=== PATIENT | male | born 1955 | race Caucasian/White ===

== ENCOUNTER 2024-08-02 17:13 | Inpatient (IN) ==
[2024-08-02] MEDS: ACETAMINOPHEN 1,000 MG/100 ML VIAL IV STA (18:00)
[2024-08-02] MEDS: ONDANSETRON INJ 2 MG/ML 2 ML VIAL IV STA (18:01)
[2024-08-02 18:17] LABS: Basophils # (auto) 0.02 K/uL (0.00-0.20); Basophils % (auto) 0.1 %; Eosinophils # (auto) 0.02 K/uL (0.00-0.50); Eosinophils % (auto) 0.1 %; Hematocrit (blood only) 44.9 % (42.0-52.0); Hemoglobin 15.1 g/dl (14.0-18.0); Immature Granulocytes # (auto) 0.04 K/uL (0.01-0.20); Immature Granulocytes % (auto) 0.3 %; Lymphocytes # (auto) 1.49 K/uL (1.20-3.40); Lymphocytes % (auto) 9.7 %; Mean Corpuscular Hemoglobin 30.6 pg (25.0-34.0); Mean Corpuscular Hgb Conc 33.6 g/dL (32.0-36.0); Mean Corpuscular Volume 90.9 fL (80.0-100.0); Mean Platelet Volume 10.2 fL (9.4-12.4); Monocytes # (auto) 0.88 K/uL (0.11-0.59); Monocytes % (auto) 5.7 %; Neutrophils # (auto) 12.87 K/uL (1.40-6.50); Neutrophils % (auto) 84.1 %; Platelet Count 270 K/uL (130-400); RDW Coefficient of Variation 13.5 % (11.5-14.5); RDW Standard Deviation 45.3 fL (36.4-46.3); Red Blood Count 4.94 M/uL (4.70-6.10); White Blood Count 15.32 K/ul (4.8-10.8)
[2024-08-02 18:34] LABS: Albumin Globulin Ratio 1.2 (0.9-2); Albumin Level 4.2 gm/dl (3.4-5.0); BUN Creatinine Ratio 38.3 (10-20); Bilirubin,Total 0.7 mg/dl (0.2-1.0); Calcium 10.3 mg/dl (8.6-10.3); Creatinine Clr Calc Pharmacy 80.5 ml/min; Globulin 3.5 gm/dl (2.5-4.0); Total Protein 7.7 gm/dl (6.0-8.3)
[2024-08-02] MEDS: OPTIRAY 320 100ml IV ONE (18:45)
--- NOTE | 2024-08-02 19:02 | CT Scan Report ---
EXAM: CT Abdomen and Pelvis With Intravenous Contrast INDICATION: Abdominal pain, nausea and vomiting TECHNIQUE: Axial computed tomography images of the abdomen and pelvis with intravenous contrast. Sagittal and coronal reformatted images were created and reviewed. This CT exam was performed using one or more of the following dose reduction techniques: automated exposure control, adjustment of the mA and/or kV according to patient size, and/or use of iterative reconstruction technique. CONTRAST: 95ml of Optiray 320 was administered intravenously. COMPARISON: CT abdomen pelvis 02/17/2023 and limited abdominal ultrasound 05/10/2018 FINDINGS: Limitations: None. Lung bases: No abnormality noted. Pleural space: No visualized pleural effusion or pneumothorax. Heart: No abnormality noted. Mediastinum: No abnormality noted. ABDOMEN: Liver: No abnormality noted. Gallbladder and bile ducts: No calcified stones or surrounding fluid. Pancreas: Homogeneous enhancement. No mass, inflammation or ductal dilation. Spleen: No significant abnormality noted. Adrenals: No significant abnormality noted. Kidneys and ureters: Lateral cortex midpole right kidney hypodense mass noted measuring 1.9 x 1.3 x 2.0 cm. The left kidney appears normal. There is no urinary gas, stone or perinephric fluid. Stomach and bowel: Suboptimally assessed partially collapsed stomach. No gross abnormality. Scattered moderate formed stool noted in the colon. No small bowel obstruction. No inflammatory process or thickening. PELVIS: Appendix: No findings to suggest acute appendicitis. Bladder: No filling defects to suggest mass or large stone. No inflammation. Reproductive: No abnormalities noted. ABDOMEN and PELVIS: Intraperitoneal space: No free air. No significant fluid collection. Bones/joints: No acute changes. Soft tissues: No significant abnormality noted. Vasculature: Atherosclerotic calcification of the aorta and branches. No aneurysm. Lymph nodes: No pathologically enlarged lymph nodes. IMPRESSION: 1. Incompletely assessed partially collapsed stomach. There is no visible mass, intestinal obstruction, thickening or inflammatory process. 2. Hypodense mass right renal midpole measures approximately 2 cm. No lesion was identified on the prior ultrasound which included the right kidney. Diagnostic considerations include complex cyst, abscess and neoplasm. Dedicated renal ultrasound recommended to further assess. ACT 112: Negative or not required by law. Electronically signed by Ivett Zhong 08-02-2024 7:01 PM
[2024-08-02 19:12] LABS: Adenovirus PCR Not Detected (NotDetected); Bordetella parapertussis PCR Not Detected (NotDetected); Bordetella pertussis PCR Not Detected (NotDetected); Chlamydia pneumoniae PCR Not Detected (NotDetected); Coronavirus 229E PCR Not Detected (NotDetected); Coronavirus CoV-2 (COVID19)PCR Not Detected (NotDetected); Coronavirus HKU1 PCR Not Detected (NotDetected); Coronavirus NL63 PCR Not Detected (NotDetected); Coronavirus OC43PCR Not Detected (NotDetected); Human Metapneumovirus PCR Not Detected (NotDetected); Influenza A PCR Not Detected (NotDetected); Influenza B PCR Not Detected (NotDetected); Mycoplasma pneumoniae PCR Not Detected (NotDetected); Parainfluenza Virus 1 PCR Not Detected (NotDetected); Parainfluenza Virus 2 PCR Not Detected (NotDetected); Parainfluenza Virus 3 PCR Not Detected (NotDetected); Parainfluenza Virus 4 PCR Not Detected (NotDetected); Respiratory Syncytial VirusPCR Not Detected (NotDetected); Rhinovirus/Enterovirus PCR Not Detected (NotDetected)
[2024-08-02] MEDS: SODIUM CHLORIDE 0.9% 1,000 ML IV ONE ×2 (19:14→22:39)
--- NOTE | 2024-08-02 19:55 | XRay Report ---
Exam(s): XR CXR 1 VIEW EXAM: XR Chest, 1 View CLINICAL HISTORY: Reason for exam: cough. TECHNIQUE: Frontal view of the chest. COMPARISON: 02/17/23 FINDINGS: Lungs: Unremarkable. No consolidation. Pleural space: Unremarkable. No pleural effusion or pneumothorax. Heart: Unremarkable. No cardiomegaly or pulmonary vascular congestion. Bones/joints: No acute fracture. No dislocation. IMPRESSION: No evidence of acute cardiopulmonary disease. Electronically signed by: Viry Baumann M.D. 08/02/24 19:54 PM
--- NOTE | 2024-08-02 20:19 | Emergency Department Note ---
ED Provider Note History of Present Illness Chief Complaint: Illness Stated Complaint: SICK, RECOVERING FROM FLU Time Seen by Provider: 08/02/24 17:34 Source: patient Mode of arrival: ambulatory Limitations: no limitations Patient is a 69-year-old male who presents to the emergency department today with complaints of nausea, vomiting, and generalized ill feeling since Saturday. Patient states that he had his flu shot on Saturday and his symptoms began 3 hours after, patient is unsure if that is related. Patient states that he has been unable to eat or drink much since Saturday because of his nausea and decreased appetite. Patient notes generalized abdominal pain. Patient denies any chest pain or shortness of breath. Allergies Allergy/AdvReac Type Severity Reaction Status Date / Time No Known Allergies Allergy Verified 07/16/24 10:38 Past Med/Surg History Problem List (Updated 08/02/24 @ 21:41 by EDVIN Fernandez) Mass of right kidney (Acute) Diabetes with skin complication Cigarette smoker History of diabetic ketoacidosis History of necrotising fasciitis Diabetes mellitus with complication Anemia GERD (gastroesophageal reflux disease) Medical History Hyperglycemia Pancreatitis 05/17/18 treated at [facility] GERD (gastroesophageal reflux disease) Surgical History History of tonsillectomy Family History Sister Breast cancer Grandfather Myocardial infarction Father Alzheimer disease Denies family history of Ovarian cancer Prostate cancer Colorectal cancer Social History Smoking Status: Current every day smoker Tobacco Type: Cigarettes Age Started Using Tobacco: 19; packs per day: 1; Cigarettes Per Day: 20; Second Hand Exposure: No; Do You Dip or Chew Tobacco: No; Hx Alcohol Use: Yes Alcohol type: beer Alcohol Intake Frequency: 4 or More x per/Week Alcohol Intake Frequency Comment: Pt stated, "I will drink about 2 beers a day." Hx Substance Use: No Preferred Language: Bulgarian Communication Ability: Effective Bar Pilot Required: No Beliefs That Will Affect Care: None Current Living Situation: Alone current occupational status: retired Feels Safe at Home: Yes Diet: diabetic during the past year weight has: decreased > 10 lbs Dental Care, Regularly: No Physical Activity Frequency: Daily Seatbelt Use: always Assistive Devices: Denture - Upper, Denture - Lower and Glasses Physical Exam Vital Signs Vital Signs - 24 hr 08/02/24 17:19 08/02/24 17:50 08/02/24 18:10 Temperature 36.6 C Temperature Source Temporal Artery Scan Pulse Rate 108 H 90 Pulse Rate [Finger] 78 Pulse Rhythm [Finger] Pulse Strength [Finger] Normal Respiratory Rate 18 18 Respiratory Effort / Characteristics Non-Labored Non-Labored Spontaneous Respiratory Depth Normal Normal Respiratory Pattern Regular Regular Blood Pressure 138/88 Blood Pressure [Left Arm] 167/82 H Blood Pressure Mean 104 Blood Pressure Mean [Left Arm] 110 Blood Pressure Position [Left Arm] Lying Pulse Oximetry 97 95 Oxygen Delivery Method Room Air Room Air Sepsis Recent Fever Within 48 Hours No Sepsis New/Unexplained Change in Mental Status N/A Sepsis Action Taken by Nursing No Action Required 08/02/24 18:10 08/02/24 19:16 08/02/24 21:00 Temperature Temperature Source Pulse Rate 75 Pulse Rate [Finger] 78 84 Pulse Rhythm [Finger] Regular Pulse Strength [Finger] Normal Respiratory Rate 18 18 18 Respiratory Effort / Characteristics Non-Labored Spontaneous Respiratory Depth Normal Respiratory Pattern Blood Pressure Blood Pressure [Left Arm] 162/83 H 158/94 H Blood Pressure Mean Blood Pressure Mean [Left Arm] 109 115 Blood Pressure Position [Left Arm] Pulse Oximetry 95 98 96 Oxygen Delivery Method Room Air Room Air Sepsis Recent Fever Within 48 Hours Sepsis New/Unexplained Change in Mental Status Sepsis Action Taken by Nursing VITAL SIGNS - Vital signs and nursing notes were reviewed. GENERAL -69-year-old male appearing his stated age who is in no acute distress. Communicates well with provider and answers questions appropriately. HEAD - NC/AT. EYES - PERRL with EOMI bilaterally. Conjunctiva pink and moist with no injection noted. EARS - No deformities of external structures noted on gross examination bilaterally. NOSE - Midline and without cyanosis. No epistaxis or purulent drainage noted. LUNGS - Chest wall symmetric without accessory muscle use, intercostals retractions, or central cyanosis. Breath sounds clear throughout all marshall. No wheezes, rales, or rhonchi appreciated. CARDIAC - RRR with S1/S2. No murmur, rubs, or gallops appreciated. ABDOMEN - Abdominal contour without pulsations or visible masses. BS normoactive all four quadrants. Generalized abdominal tenderness, no increased tenderness to palpation. No palpable masses, hepatosplenomegaly, or ascites noted. NEUROLOGIC - Sensory intact to light touch throughout. PSYCH - A&Ox3 and cooperates fully with examiner. Pt is very pleasant and interacts well with examiner. Course Administered Medications Discontinued Medications Acetaminophen (Ofirmev) 1,000 mg in 100 mls @ 400 mls/hr IV NOW STA Stop: 08/02/24 17:54 Last Infusion: 08/02/24 18:48 Dose: Infused Documented By: Admin: 08/02/24 18:00 Dose: 400 mls/hr Documented By: LYNDON Sodium Chloride (Nss) 1,000 mls @ 999 mls/hr IV .Q1H1M ONE Stop: 08/02/24 20:08 Last Infusion: 08/02/24 20:15 Dose: Infused Documented By: Admin: 08/02/24 19:14 Dose: 999 mls/hr Documented By: LYNDON Ceftriaxone Sodium (Rocephin) 2,000 mg in 50 mls @ 100 mls/hr IV NOW STA Stop: 08/02/24 20:34 Last Infusion: 08/02/24 20:55 Dose: Infused Documented By: Admin: 08/02/24 20:23 Dose: 100 mls/hr Documented By: LYNDON Ioversol (Optiray 320 100ml) 95 ml IV ONCE ONE Stop: 08/02/24 18:46 Last Admin: 08/02/24 18:45 Dose: 95 ml Documented By: RED Ondansetron HCl (Ondansetron Inj 2 Mg/Ml 2 Ml Vial) 4 mg IV NOW STA Stop: 08/02/24 17:41 Last Admin: 08/02/24 18:01 Dose: 4 mg Documented By: LYNDON Medical Decision Making Differential Diagnosis Differential diagnoses includes gastritis, gastroenteritis, IBS, small bowel obstruction, pancreatitis, peritonitis, constipation, abdominal abcess, among others. Medical Records Attestation: I reviewed the patient's medical records. Home Medications was personally reviewed by me Laboratory Data Attestation: I reviewed the patient's lab results. 08/02/24 17:50 08/02/24 17:50 Lab Results 08/02/24 08/02/24 08/02/24 Range/Units 17:50 19:50 20:15 WBC 15.32 H (4.8-10.8) K/ul RBC 4.94 (4.70-6.10) M/uL Hgb 15.1 (14.0-18.0) g/dl Hct 44.9 (42.0-52.0) % MCV 90.9 (80.0-100.0) fL MCH 30.6 (25.0-34.0) pg MCHC 33.6 (32.0-36.0) g/dL RDW Std Deviation 45.3 (36.4-46.3) fL RDW Coeff of Poli 13.5 (11.5-14.5) % Plt Count 270 (130-400) K/uL MPV 10.2 (9.4-12.4) fL Immature Gran % (Auto) 0.3 % Neut % (Auto) 84.1 % Lymph % (Auto) 9.7 % [place] % (Auto) 5.7 % Eos % (Auto) 0.1 % Baso % (Auto) 0.1 % Neut # (Auto) 12.87 H (1.40-6.50) K/uL Lymph # (Auto) 1.49 (1.20-3.40) K/uL [place] # (Auto) 0.88 H (0.11-0.59) K/uL Eos # (Auto) 0.02 (0.00-0.50) K/uL Baso # (Auto) 0.02 (0.00-0.20) K/uL Immature Gran # (Auto) 0.04 (0.01-0.20) K/uL Sodium 145 (136-145) mmol/L Potassium 4.0 (3.5-5.1) mmol/L Chloride 104 (98-107) mmol/L Carbon Dioxide 32 (21-32) mmol/L Anion Gap 9 (3-11) BUN 31 H (6-23) mg/dl Creatinine 0.81 (0.6-1.4) mg/dl Est Cr Clr Drug Dosing 80.5 ml/min eGFR 95.44 BUN/Creatinine Ratio 38.3 H (10-20) Glucose 173 H (70-99(Fasting)) mg/dl Lactate 1.0 (0.4-2.0) mmol/L Calcium 10.3 (8.6-10.3) mg/dl Total Bilirubin 0.7 (0.2-1.0) mg/dl AST 18 (13-39) U/L ALT 19 (7-52) U/L Alkaline Phosphatase 91 (34-104) U/L Total Protein 7.7 (6.0-8.3) gm/dl Albumin 4.2 (3.4-5.0) gm/dl Globulin 3.5 (2.5-4.0) gm/dl Albumin/Globulin Ratio 1.2 (0.9-2) Lipase 35 (11-82) U/L Procalcitonin 0.38 (0-0.5) ng/ml Urine Color Yellow Urine Appearance Clear (Clear) Urine pH 5.5 (4.5-7.5) Ur Specific [place] > 1.045 H (1.000-1.030) Urine Protein Trace H (Negative) Urine Glucose (UA) Negative (Negative) Urine Ketones Negative (Negative) Urine Blood Negative (Negative) Urine Nitrite Negative (Negative) Urine Bilirubin Negative (Negative) Urine Urobilinogen Negative (Negative) Ur Leukocyte Esterase Negative (Negative) Urine WBC (Auto) 0-5 (0-5) /hpf Urine RBC (Auto) 0-2 (0-2) /hpf U Hyaline Cast (Auto) 0-2 (0-2) /lpf U Epithel Cells (Auto) 0-2 (0-2) /hpf Urine Bacteria (Auto) None Seen (None Seen) Adenovirus (PCR) Not Detected (NotDetected) B. pertussis DNA (PCR) Not Detected (NotDetected) B.parapertussis DNA PCR Not Detected (NotDetected) C. pneumoniae DNA (PCR) Not Detected (NotDetected) Coronavirus OC43 (PCR) Not Detected (NotDetected) Coronavirus HKU1 (PCR) Not Detected (NotDetected) Coronavirus 229E (PCR) Not Detected (NotDetected) SARS-CoV-2 (PCR) Not Detected (NotDetected) Coronavirus NL63 (PCR) Not Detected (NotDetected) Human Metapneumovir PCR Not Detected (NotDetected) Influenza Type A (PCR) Not Detected (NotDetected) Influenza Type B (PCR) Not Detected (NotDetected) M. pneumoniae (PCR) Not Detected (NotDetected) Parainfluenza 1 (PCR) Not Detected (NotDetected) Parainfluenza 2 (PCR) Not Detected (NotDetected) Parainfluenza 3 (PCR) Not Detected (NotDetected) Parainfluenza 4 (PCR) Not Detected (NotDetected) RSV (PCR) Not Detected (NotDetected) Entero/Rhino (PCR) Not Detected (NotDetected) Imaging Data Radiologist's Impression: Abdomen/Pelvis CT 08/02/24 17:41 EXAM: CT Abdomen and Pelvis With Intravenous Contrast INDICATION: Abdominal pain, nausea and vomiting TECHNIQUE: Axial computed tomography images of the abdomen and pelvis with intravenous contrast. Sagittal and coronal reformatted images were created and reviewed. This CT exam was performed using one or more of the following dose reduction techniques: automated exposure control, adjustment of the mA and/or kV according to patient size, and/or use of iterative reconstruction technique. CONTRAST: 95ml of Optiray 320 was administered intravenously. COMPARISON: CT abdomen pelvis 02/17/2023 and limited abdominal ultrasound 05/10/2018 FINDINGS: Limitations: None. Lung bases: No abnormality noted. Pleural space: No visualized pleural effusion or pneumothorax. Heart: No abnormality noted. Mediastinum: No abnormality noted. ABDOMEN: Liver: No abnormality noted. Gallbladder and bile ducts: No calcified stones or surrounding fluid. Pancreas: Homogeneous enhancement. No mass, inflammation or ductal dilation. Spleen: No significant abnormality noted. Adrenals: No significant abnormality noted. Kidneys and ureters: Lateral cortex midpole right kidney hypodense mass noted measuring 1.9 x 1.3 x 2.0 cm. The left kidney appears normal. There is no urinary gas, stone or perinephric fluid. Stomach and bowel: Suboptimally assessed partially collapsed stomach. No gross abnormality. Scattered moderate formed stool noted in the colon. No small bowel obstruction. No inflammatory process or thickening. PELVIS: Appendix: No findings to suggest acute appendicitis. Bladder: No filling defects to suggest mass or large stone. No inflammation. Reproductive: No abnormalities noted. ABDOMEN and PELVIS: Intraperitoneal space: No free air. No significant fluid collection. Bones/joints: No acute changes. Soft tissues: No significant abnormality noted. Vasculature: Atherosclerotic calcification of the aorta and branches. No aneurysm. Lymph nodes: No pathologically enlarged lymph nodes. IMPRESSION: 1. Incompletely assessed partially collapsed stomach. There is no visible mass, intestinal obstruction, thickening or inflammatory process. 2. Hypodense mass right renal midpole measures approximately 2 cm. No lesion was identified on the prior ultrasound which included the right kidney. Diagnostic considerations include complex cyst, abscess and neoplasm. Dedicated renal ultrasound recommended to further assess. ACT 112: Negative or not required by law. Electronically signed by Ivett Zhong 08-02-2024 7:01 PM Chest X-Ray 08/02/24 18:23 Exam(s): XR CXR 1 VIEW EXAM: XR Chest, 1 View CLINICAL HISTORY: Reason for exam: cough. TECHNIQUE: Frontal view of the chest. COMPARISON: 02/17/23 FINDINGS: Lungs: Unremarkable. No consolidation. Pleural space: Unremarkable. No pleural effusion or pneumothorax. Heart: Unremarkable. No cardiomegaly or pulmonary vascular congestion. Bones/joints: No acute fracture. No dislocation. IMPRESSION: No evidence of acute cardiopulmonary disease. Electronically signed by: Viry Baumann M.D. 08/02/24 19:54 PM Renal Ultrasound 08/02/24 20:21 Exam(s): US RENAL EXAM: US Retroperitoneal Limited, Renal CLINICAL HISTORY: Reason for exam: renal mass. TECHNIQUE: Real-time limited ultrasound of the retroperitoneum with image documentation. COMPARISON: CT abdomen and pelvis of the same date FINDINGS: Right kidney: Right kidney measures 11.2 cm. No hydronephrosis. No stone. Complex midpole lesion measuring 2.6 cm. Left kidney: Left kidney measures 11.2 cm. No hydronephrosis, mass, cyst, or stone. Bladder: Urinary bladder appears normal. Left jet visualized. Right jet not visualized during the course of imaging. IMPRESSION: Complex right kidney midpole mass measuring 2.6 cm. Further characterization with renal mass protocol MRI or CT recommended. Electronically signed by: Viry Baumann M.D. 08/02/24 21:[address] [facility] Narrative Patient is a 69-year-old male who presents to the emergency department with complaints of generalized abdominal pain, nausea, and vomiting since Saturday. Patient states that he had his flu vaccine on Saturday and 3 hours after started having nausea and vomiting. Patient states that he is unsure if that is related. Patient notes that he is not been able to eat or drink much over the last 3 days because of his symptoms worsening. Patient denies any chest pain or shortness of breath. Patient was evaluated by myself and findings were noted in the physical exam above. Patient was ordered IV placement, lab work, respiratory viral panel, urinalysis, and chest x-ray and CT of the abdomen and pelvis. Patient's lab work resulted and showed the patient to have an elevated white blood cell count of 15.32. Patient also had an elevated BUN at 31. Otherwise the patient's lab work was relatively unremarkable. Patient's upper respiratory viral panel was negative for any viral process. Patient's x-ray of the chest was completed and interpreted by radiology to show no evidence of acute cardiopulmonary disease. Patient had a CT of the abdomen and pelvis completed which was interpreted by radiology to show hypodense mass on the right renal midpole that measures approximately 2 cm. Radiology interpreted it to be a cyst versus abscess versus neoplasm and suggested renal ultrasound for further follow-up. Patient initially was having some difficulty voiding and nursing staff did a bladder scan at bedside which bladder scan for about 200 mL. Patient was then able to void approximately 100 mL and that was sent for urinalysis. Patient's urinalysis returned and was unremarkable, noting only trace protein. Because of the patient's elevated white blood cell count and relatively unremarkable findings outside of the renal mass, I contacted urology as well as ordered the renal ultrasound and further lab work to include a lactic, procalcitonin, and blood cultures. I spoke with Dr. Alcala of urology who also looked at the patient's lab work and CT and agreed that the mass did not look like a typical renal mass and suggested the renal ultrasound as well. Dr. Alcala stated that if the patient's ultrasound showed a definitive abscess on the kidney that he should be transferred to a tertiary care center but stated that if the patient's ultrasound was not definitive on the cause that he could be kept here under the medical services and consult urology and continue to monitor the patient to see if IV antibiotics improve the patient's status and the patient could be reimaged in a day or 2. Upon reevaluation the patient states that he is feeling better with the IV Tylenol. Patient was ordered a dose of IV Rocephin. I discussed with the patient the possibility of admission to the hospital and the patient verbalized understanding and stated that he would do what ever was necessary. The patient's renal ultrasound resulted and showed a complex mass of the kidney and suggested further imaging. I reached back out to Dr. Alcala and made him aware that it did not show a definitive abscess and made him aware that I was reaching out to [facility] to admit the patient here at [facility]. I spoke with case management about admitting the patient here and the patient was under the [facility] service. I reached out to [facility] service and Dr. Dye about this patient. Please refer to [facility]'s documentation for further evaluation and management of this patient. Impression Mass of right kidney Discharge Plan Visit Data Chief Complaint: Illness Stated Complaint: SICK, RECOVERING FROM FLU ED Provider: Sam Morrissey ED Midlevel Provider: Ina Giron Discharge Problem: Mass of right kidney Patient Disposition: Admitted As Inpatient Forms Stand Alone Forms: My [facility] Referrals Referrals: Angel Fang, [Primary Care Provider] -
[2024-08-02] MEDS: cefTRIAXone SODIUM 2,000 MG/50 ML BAG IV STA (20:23)
[2024-08-02 20:27] LABS: Appearance Urine Clear (Clear); Bacteria Urine Automated None Seen (None Seen); Bilirubin Urine Negative (Negative); Blood Urine Negative (Negative); Cast Urine Automated 0-2 /lpf (0-2); Color Urine Yellow; Epithelial Cell Urine Auto 0-2 /hpf (0-2); Glucose Urine UA Negative (Negative); Ketones Urine Negative (Negative); Leukocyte Esterase Urine Negative (Negative); Nitrite Urine Negative (Negative); Protein Urine Trace (Negative); RBC Urine Automated 0-2 /hpf (0-2); Specific Gravity Urine > 1.045 (1.000-1.030); Urobilinogen Urine Negative (Negative); WBC Urine Automated 0-5 /hpf (0-5); pH Urine 5.5 (4.5-7.5)
--- NOTE | 2024-08-02 21:26 | Ultrasound Report ---
Exam(s): US RENAL EXAM: US Retroperitoneal Limited, Renal CLINICAL HISTORY: Reason for exam: renal mass. TECHNIQUE: Real-time limited ultrasound of the retroperitoneum with image documentation. COMPARISON: CT abdomen and pelvis of the same date FINDINGS: Right kidney: Right kidney measures 11.2 cm. No hydronephrosis. No stone. Complex midpole lesion measuring 2.6 cm. Left kidney: Left kidney measures 11.2 cm. No hydronephrosis, mass, cyst, or stone. Bladder: Urinary bladder appears normal. Left jet visualized. Right jet not visualized during the course of imaging. IMPRESSION: Complex right kidney midpole mass measuring 2.6 cm. Further characterization with renal mass protocol MRI or CT recommended. Electronically signed by: Viry Baumann M.D. 08/02/24 21:25 PM
--- NOTE | 2024-08-02 22:26 | History & Physical Report ---
Date of Service August 02, 2024 Assessment & Plan (1) Influenza vaccine side effect: (2) Nausea and vomiting: (3) Mass of right kidney: (4) Dehydration: (5) Cigarette smoker: (6) Diabetes mellitus with complication: (7) GERD (gastroesophageal reflux disease): Plan Nausea, vomiting, dehydration- Likely adverse reaction to influenza vaccine From the ED received the following: NSS 1 L fluid bolus, Tylenol 1 g IV, and Zofran 4 mg IV Give additional 1 L normal saline bolus now Full liquid diet, and advance as tolerated Dose of 40 mg IV x 1 now Maintenance fluids NSS + KCl 20 mill equivalents at 80 mL/h x 1 L Acetaminophen 650 mg by mouth every 6 hours as needed for mild pain or fever 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 on renal ultrasound Initially noted on CT abdomen pelvis is a 2 cm right renal midpole lesion Urinalysis is negative for infection He was given ceftriaxone 2 g IV from the ED Send urine cytology with reflex FISH Diabetes mellitus- Glucose 173 on admission Hold metformin Placed on Accu-Cheks with NovoLog SSI Tobacco use disorder Feels he will not need a nicotine patch, but will ask if he changes his mind Hyperlipidemia- Hold rosuvastatin for now History of Present Illness Chief Complaint: The patient presents to the emergency department with complaint of nausea, vomiting and feelings of dehydration that initially began after receiving a flu shot on Saturday morning, 2 mornings ago, and began to feel like he had the flu a few hours later. Primary Care Provider: Angel Fang DO The patient is a 69-year-old male with a past medical history including chronic tobacco use, history of DKA, history of necrotizing fasciitis, diabetes mellitus, anemia, GERD, and history of pancreatitis. He presents to the emergency department after developing flulike symptoms shortly after receiving a flu shot 2 mornings ago. In the emergency department this evening, he reports feeling somewhat improved after having received normal saline 1 L fluid bolus, Tylenol 1 g IV, and Zofran 4 mg IV. Allergies Allergy/AdvReac Type Severity Reaction Status Date / Time No Known Allergies Allergy Verified 07/16/24 10:38 Past Med/Surg History Problem List (Updated 08/03/24 @ 01:26 by Sim Dye MD) Influenza vaccine side effect Nausea and vomiting Dehydration Mass of right kidney (Acute) Diabetes with skin complication Cigarette smoker History of diabetic ketoacidosis History of necrotising fasciitis Diabetes mellitus with complication Anemia GERD (gastroesophageal reflux disease) Medical History Hyperglycemia Pancreatitis 05/17/18 treated at [facility] GERD (gastroesophageal reflux disease) Surgical History History of tonsillectomy Family History Sister Breast cancer Grandfather Myocardial infarction Father Alzheimer disease Denies family history of Ovarian cancer Prostate cancer Colorectal cancer Social History Smoking Status: Heavy tobacco smoker Tobacco Type: Cigarettes Age Started Using Tobacco: 19; packs per day: 1; Cigarettes Per Day: 20; Second Hand Exposure: No; Do You Dip or Chew Tobacco: No; Hx Alcohol Use: Yes Alcohol type: wine Alcohol Intake Frequency: 4 or More x per/Week Alcohol Intake Frequency Comment: Pt stated, "I will drink about 2 beers a day." Hx Substance Use: Yes Preferred Language: Mongolian Communication Ability: Effective Patient Financial Rep Required: No Beliefs That Will Affect Care: None Current Living Situation: Alone current occupational status: retired Feels Safe at Home: Yes Diet: diabetic during the past year weight has: decreased > 10 lbs Dental Care, Regularly: No Physical Activity Frequency: Daily Seatbelt Use: always Assistive Devices: None Review of Systems Review of Systems: The patient denies chest pain, palpitations, shortness of breath, dyspnea on exertion, cough, lower extremity swelling, sore throat, diarrhea , constipation, abdominal pain, pelvic pain, blood in urine or stool, dysuria, urinary frequency or urgency, memory loss, loss of consciousness, rash, abnormal bruising or bleeding, focal or generalized weakness, numbness or tingling in arms or legs, back or neck pain, or night sweats. The review of systems is otherwise negative other than for that already noted above, and at least 10 systems have been reviewed. Physical Exam Physical Exam: The patient is awake, alert and oriented 3, well developed and well nourished, normocephalic and atraumatic, lying in bed and in no acute distress. HEENT--PERRL, EOMI, mucous membranes and oropharynx mildly dry. Neck--supple. No JVD. No bruits. Thyroid normal, trachea midline, no adenopathy. Heart--normal S1 and S2. No murmurs, rubs or gallops. Lungs--clear bilaterally, no respiratory distress, no accessory muscle use. Abdomen--normal bowel sounds and soft. Nontender. Nondistended, no hernias or masses, no organomegaly. Extremities--no cyanosis or clubbing. No edema. There are good distal pulses b/l. Dermatologic--normal skin turgor, normal color, no abnormal lymph nodes, no rash. Neurologic--cranial nerves II through XII grossly intact. Rheumatologic--normal range of motion. Psychiatric--normal affect. Results & Data Results & Data Vital Signs (Past 12 Hours) Vital Signs Temp Pulse Pulse Resp BP BP Pulse Ox 08/02/24 21:00 84 18 158/94 H 96 08/02/24 19:16 78 18 162/83 H 98 08/02/24 18:10 75 18 95 08/02/24 18:10 78 18 167/82 H 95 08/02/24 17:50 90 08/02/24 17:19 36.6 C 108 H 18 138/88 97 O2 Del Method 08/02/24 21:00 08/02/24 19:16 Room Air 08/02/24 18:10 Room Air 08/02/24 18:10 Room Air 08/02/24 17:50 08/02/24 17:19 Room Air Laboratory Results Laboratory Results WBC 15.32 K/ul (4.8-10.8) H 08/02/24 17:50 RBC 4.94 M/uL (4.70-6.10) 08/02/24 17:50 Hgb 15.1 g/dl (14.0-18.0) 08/02/24 17:50 Hct 44.9 % (42.0-52.0) 08/02/24 17:50 MCV 90.9 fL (80.0-100.0) 08/02/24 17:50 MCH 30.6 pg (25.0-34.0) 08/02/24 17:50 MCHC 33.6 g/dL (32.0-36.0) 08/02/24 17:50 RDW Std Deviation 45.3 fL (36.4-46.3) 08/02/24 17:50 RDW Coeff of Poli 13.5 % (11.5-14.5) 08/02/24 17:50 Plt Count 270 K/uL (130-400) 08/02/24 17:50 MPV 10.2 fL (9.4-12.4) 08/02/24 17:50 Immature Gran % (Auto) 0.3 % 08/02/24 17:50 Neut % (Auto) 84.1 % 08/02/24 17:50 Lymph % (Auto) 9.7 % 08/02/24 17:50 [place] % (Auto) 5.7 % 08/02/24 17:50 Eos % (Auto) 0.1 % 08/02/24 17:50 Baso % (Auto) 0.1 % 08/02/24 17:50 Neut # (Auto) 12.87 K/uL (1.40-6.50) H 08/02/24 17:50 Lymph # (Auto) 1.49 K/uL (1.20-3.40) 08/02/24 17:50 [place] # (Auto) 0.88 K/uL (0.11-0.59) H 08/02/24 17:50 Eos # (Auto) 0.02 K/uL (0.00-0.50) 08/02/24 17:50 Baso # (Auto) 0.02 K/uL (0.00-0.20) 08/02/24 17:50 Immature Gran # (Auto) 0.04 K/uL (0.01-0.20) 08/02/24 17:50 Sodium 145 mmol/L (136-145) 08/02/24 17:50 Potassium 4.0 mmol/L (3.5-5.1) 08/02/24 17:50 Chloride 104 mmol/L (98-107) 08/02/24 17:50 Carbon Dioxide 32 mmol/L (21-32) 08/02/24 17:50 Anion Gap 9 (3-11) 08/02/24 17:50 BUN 31 mg/dl (6-23) H 08/02/24 17:50 Creatinine 0.81 mg/dl (0.6-1.4) 08/02/24 17:50 Est Cr Clr Drug Dosing 80.5 ml/min 08/02/24 17:50 eGFR 95.44 08/02/24 17:50 BUN/Creatinine Ratio 38.3 (10-20) H 08/02/24 17:50 Glucose 173 mg/dl (70-99(Fasting)) H 08/02/24 17:50 POC Glucose 122 mg/dl (70-99) H 08/02/24 23:58 Lactate 1.0 mmol/L (0.4-2.0) 08/02/24 20:15 Calcium 10.3 mg/dl (8.6-10.3) 08/02/24 17:50 Total Bilirubin 0.7 mg/dl (0.2-1.0) 08/02/24 17:50 AST 18 U/L (13-39) 08/02/24 17:50 ALT 19 U/L (7-52) 08/02/24 17:50 Alkaline Phosphatase 91 U/L (34-104) 08/02/24 17:50 Total Protein 7.7 gm/dl (6.0-8.3) 08/02/24 17:50 Albumin 4.2 gm/dl (3.4-5.0) 08/02/24 17:50 Globulin 3.5 gm/dl (2.5-4.0) 08/02/24 17:50 Albumin/Globulin Ratio 1.2 (0.9-2) 08/02/24 17:50 Lipase 35 U/L (11-82) 08/02/24 17:50 Procalcitonin 0.38 ng/ml (0-0.5) 08/02/24 20:15 Urine Color Yellow 08/02/24 19:50 Urine Appearance Clear (Clear) 08/02/24 19:50 Urine pH 5.5 (4.5-7.5) 08/02/24 19:50 Ur Specific [place] > 1.045 (1.000-1.030) H 08/02/24 19:50 Urine Protein Trace (Negative) H 08/02/24 19:50 Urine Glucose (UA) Negative (Negative) 08/02/24 19:50 Urine Ketones Negative (Negative) 08/02/24 19:50 Urine Blood Negative (Negative) 08/02/24 19:50 Urine Nitrite Negative (Negative) 08/02/24 19:50 Urine Bilirubin Negative (Negative) 08/02/24 19:50 Urine Urobilinogen Negative (Negative) 08/02/24 19:50 Ur Leukocyte Esterase Negative (Negative) 08/02/24 19:50 Urine WBC (Auto) 0-5 /hpf (0-5) 08/02/24 19:50 Urine RBC (Auto) 0-2 /hpf (0-2) 08/02/24 19:50 U Hyaline Cast (Auto) 0-2 /lpf (0-2) 08/02/24 19:50 U Epithel Cells (Auto) 0-2 /hpf (0-2) 08/02/24 19:50 Urine Bacteria (Auto) None Seen (None Seen) 08/02/24 19:50 Adenovirus (PCR) Not Detected (NotDetected) 08/02/24 17:50 B. pertussis DNA (PCR) Not Detected (NotDetected) 08/02/24 17:50 B.parapertussis DNA PCR Not Detected (NotDetected) 08/02/24 17:50 C. pneumoniae DNA (PCR) Not Detected (NotDetected) 08/02/24 17:50 Coronavirus OC43 (PCR) Not Detected (NotDetected) 08/02/24 17:50 Coronavirus HKU1 (PCR) Not Detected (NotDetected) 08/02/24 17:50 Coronavirus 229E (PCR) Not Detected (NotDetected) 08/02/24 17:50 SARS-CoV-2 (PCR) Not Detected (NotDetected) 08/02/24 17:50 Coronavirus NL63 (PCR) Not Detected (NotDetected) 08/02/24 17:50 Human Metapneumovir PCR Not Detected (NotDetected) 08/02/24 17:50 Influenza Type A (PCR) Not Detected (NotDetected) 08/02/24 17:50 Influenza Type B (PCR) Not Detected (NotDetected) 08/02/24 17:50 M. pneumoniae (PCR) Not Detected (NotDetected) 08/02/24 17:50 Parainfluenza 1 (PCR) Not Detected (NotDetected) 08/02/24 17:50 Parainfluenza 2 (PCR) Not Detected (NotDetected) 08/02/24 17:50 Parainfluenza 3 (PCR) Not Detected (NotDetected) 08/02/24 17:50 Parainfluenza 4 (PCR) Not Detected (NotDetected) 08/02/24 17:50 RSV (PCR) Not Detected (NotDetected) 08/02/24 17:50 Entero/Rhino (PCR) Not Detected (NotDetected) 08/02/24 17:50 Impressions Abdomen/Pelvis CT 08/02/24 17:41 EXAM: CT Abdomen and Pelvis With Intravenous Contrast INDICATION: Abdominal pain, nausea and vomiting TECHNIQUE: Axial computed tomography images of the abdomen and pelvis with intravenous contrast. Sagittal and coronal reformatted images were created and reviewed. This CT exam was performed using one or more of the following dose reduction techniques: automated exposure control, adjustment of the mA and/or kV according to patient size, and/or use of iterative reconstruction technique. CONTRAST: 95ml of Optiray 320 was administered intravenously. COMPARISON: CT abdomen pelvis 02/17/2023 and limited abdominal ultrasound 05/10/2018 FINDINGS: Limitations: None. Lung bases: No abnormality noted. Pleural space: No visualized pleural effusion or pneumothorax. Heart: No abnormality noted. Mediastinum: No abnormality noted. ABDOMEN: Liver: No abnormality noted. Gallbladder and bile ducts: No calcified stones or surrounding fluid. Pancreas: Homogeneous enhancement. No mass, inflammation or ductal dilation. Spleen: No significant abnormality noted. Adrenals: No significant abnormality noted. Kidneys and ureters: Lateral cortex midpole right kidney hypodense mass noted measuring 1.9 x 1.3 x 2.0 cm. The left kidney appears normal. There is no urinary gas, stone or perinephric fluid. Stomach and bowel: Suboptimally assessed partially collapsed stomach. No gross abnormality. Scattered moderate formed stool noted in the colon. No small bowel obstruction. No inflammatory process or thickening. PELVIS: Appendix: No findings to suggest acute appendicitis. Bladder: No filling defects to suggest mass or large stone. No inflammation. Reproductive: No abnormalities noted. ABDOMEN and PELVIS: Intraperitoneal space: No free air. No significant fluid collection. Bones/joints: No acute changes. Soft tissues: No significant abnormality noted. Vasculature: Atherosclerotic calcification of the aorta and branches. No aneurysm. Lymph nodes: No pathologically enlarged lymph nodes. IMPRESSION: 1. Incompletely assessed partially collapsed stomach. There is no visible mass, intestinal obstruction, thickening or inflammatory process. 2. Hypodense mass right renal midpole measures approximately 2 cm. No lesion was identified on the prior ultrasound which included the right kidney. Diagnostic considerations include complex cyst, abscess and neoplasm. Dedicated renal ultrasound recommended to further assess. ACT 112: Negative or not required by law. Electronically signed by Ivett Zhong 08-02-2024 7:01 PM Chest X-Ray 08/02/24 18:23 Exam(s): XR CXR 1 VIEW EXAM: XR Chest, 1 View CLINICAL HISTORY: Reason for exam: cough. TECHNIQUE: Frontal view of the chest. COMPARISON: 02/17/23 FINDINGS: Lungs: Unremarkable. No consolidation. Pleural space: Unremarkable. No pleural effusion or pneumothorax. Heart: Unremarkable. No cardiomegaly or pulmonary vascular congestion. Bones/joints: No acute fracture. No dislocation. IMPRESSION: No evidence of acute cardiopulmonary disease. Electronically signed by: Viry Baumann M.D. 08/02/24 19:54 PM Renal Ultrasound 08/02/24 20:21 Exam(s): US RENAL EXAM: US Retroperitoneal Limited, Renal CLINICAL HISTORY: Reason for exam: renal mass. TECHNIQUE: Real-time limited ultrasound of the retroperitoneum with image documentation. COMPARISON: CT abdomen and pelvis of the same date FINDINGS: Right kidney: Right kidney measures 11.2 cm. No hydronephrosis. No stone. Complex midpole lesion measuring 2.6 cm. Left kidney: Left kidney measures 11.2 cm. No hydronephrosis, mass, cyst, or stone. Bladder: Urinary bladder appears normal. Left jet visualized. Right jet not visualized during the course of imaging. IMPRESSION: Complex right kidney midpole mass measuring 2.6 cm. Further characterization with renal mass protocol MRI or CT recommended. Electronically signed by: Viry Baumann M.D. 08/02/24 21:25 PM Code Status & VTE Plan Code Status Full code VTE Prophylaxis Plan VTE Prophylaxis will be ordered: Yes PG Care Time/CCT Total # of Minutes Spent Total Time Spent with Patient: Total time spent is greater than 50% in coordination of care (as documented) at patient's floor/unit and/or counseling patient: Coding Level of Care Code 73441 INT INP/OBS CARE 3/75MIN Diagnoses Influenza vaccine side effect [id number].B95A Nausea and vomiting R11.2 Mass of right kidney N28.89 Dehydration E86.0 Cigarette smoker F17.210 Diabetes mellitus with complication E11.8 GERD (gastroesophageal reflux disease) K21.9
[2024-08-02] MEDS: PANTOprazole 40 MG/10 ML SYR IV ONE (22:39)
[2024-08-03] MEDS ORDERED: ACETAMINOPHEN 325 MG TAB PO PRN (00:03)
[2024-08-03] MEDS ORDERED: GLUCOSE 10 TAB/TUBE PO PRN (00:03)
[2024-08-03] MEDS ORDERED: CARBOHYDRATES FOR HYPOGLYCEMIA PO PRN (00:03)
[2024-08-03] MEDS ORDERED: GLUCOSE 40% GEL 15 GM TUBE PO PRN (00:03)
[2024-08-03] MEDS ORDERED: DEXTROSE 50% 50 ML SYRINGE IV PRN (00:03)
[2024-08-03] MEDS ORDERED: GLUCAGON FOR INJ 1 MG VIAL SQ PRN (00:03)
[2024-08-03] MEDS: NSS + 20MEQ KCL 20 MEQ/1,000 ML BAG IV SCH (00:37)
[2024-08-03 07:56] LABS: Basophils # (auto) 0.04 K/uL (0.00-0.20); Basophils % (auto) 0.4 %; Eosinophils # (auto) 0.06 K/uL (0.00-0.50); Eosinophils % (auto) 0.6 %; Hematocrit (blood only) 37.6 % (42.0-52.0); Hemoglobin 12.4 g/dl (14.0-18.0); Immature Granulocytes # (auto) 0.03 K/uL (0.01-0.20); Immature Granulocytes % (auto) 0.3 %; Lymphocytes # (auto) 1.79 K/uL (1.20-3.40); Lymphocytes % (auto) 17.7 %; Mean Corpuscular Hemoglobin 30.2 pg (25.0-34.0); Mean Corpuscular Volume 91.5 fL (80.0-100.0); Mean Platelet Volume 10.8 fL (9.4-12.4); Monocytes # (auto) 0.69 K/uL (0.11-0.59); Monocytes % (auto) 6.8 %; Neutrophils # (auto) 7.48 K/uL (1.40-6.50); Neutrophils % (auto) 74.2 %; Platelet Count 197 K/uL (130-400); RDW Coefficient of Variation 13.6 % (11.5-14.5); RDW Standard Deviation 46.1 fL (36.4-46.3); Red Blood Count 4.11 M/uL (4.70-6.10); White Blood Count 10.09 K/ul (4.8-10.8)
[2024-08-03 08:07] LABS: Albumin Level 3.3 gm/dl (3.4-5.0); BUN Creatinine Ratio 35.5 (10-20); Calcium 8.9 mg/dl (8.6-10.3); Creatinine Clr Calc Pharmacy 104.6 ml/min; Magnesium 2.1 mg/dl (1.7-2.4); Phosphorus 2.7 mg/dl (2.5-4.9); Potassium 3.8 mmol/L (3.5-5.1)
[2024-08-03] MEDS: ALUMINUM/MAGNESIUM SUSP 30 ML UDC PO STA (08:12)
[2024-08-03] MEDS: INSULIN ASPART PER UNIT CHARGE SC SCH (08:13)
[2024-08-03 08:16] LABS: Estimated Average Glucose 128 mg/dl; Hemoglobin A1C 6.1 % (4.5-5.6)
[2024-08-03] MEDS: PANTOprazole 40 MG TAB PO SCH (09:02)
[2024-08-03] MEDS: ONDANSETRON INJ 2 MG/ML 2 ML VIAL IV PRN (11:45)
--- NOTE | 2024-08-03 13:57 | Hospitalist Progress Note ---
Date of Service August 03, 2024 Assessment & Plan (1) GERD (gastroesophageal reflux disease): Plan: Presented with nausea, vomiting, dehydration x 3 days after receiving influenza vaccine - Patient states he has been dealing with GERD for >1 year. Has tried lifestyle modifications with minimal benefit > History significant for new onset dyspepsia >60 y/o, 15-20 pound weight loss in last year, moderate alcohol use, and 1 ppd smoking history x 50 years - Has followed with GI outpatient for GERD symptoms, and per note on 07/16/24, patient has declined starting daily therapy - EGD from 2018 significant for esophagitis - GI consulted, appreciate recommendations > I believe patient would benefit from EGD while inpatient given his risk factors listed above > No history of screening colonoscopy per our records; recommend colonoscopy as well - Started/continue pantoprazole daily - Full liquid diet, and advance as tolerated - Acetaminophen 650 mg by mouth every 6 hours as needed for mild pain or fever (2) Mass of right kidney: Plan: Right renal midpole mass noted on CT A/P - Renal US noted complex right kidney midpole mass measuring 2.6 cm; recommended renal mass protocol CT - Renal CT ordered, pending - UA negative for infection - Urine cytology with reflex FISH pending (3) Diabetes mellitus with complication: Plan: Glucose 173 on admission Hold metformin Placed on Accu-Cheks with NovoLog SSI A1c 6.1% Plan Ordered Maalox x 1 Started Protonix Consulted GI Ordered renal CT Chronic Problems: Tobacco use disorder - Feels he will not need a nicotine patch, but will ask if he changes his mind Admission and Anticipated Discharge Date Admission Date: August 02, 2024 Supervising Physician Co-Signing Physician Notes Attending Attestation - Chart reviewed, care plan d/w SHELLIE Bruno. I agree w/ the martinez components of her documentation. Appreciate GI input and recs. Await renal CT given the complex cyst seen on previous imaging. Caleb Loving MD Subjective Patient seen and evaluated at bedside. He reports feeling poorly, complaining most prominently of GERD. He states this has been going on for >1 year and he has had about 15-20 pound weight loss, which she attributes to not eating because of his symptoms. He states "the medicines GI gave me in the past did not help at all." He does drink alcohol and has a 50-year 1 PPD smoking history. He states he is scheduled for a repeat EGD in September 2024. He denies use of NSAIDs or history of stomach ulcers. He states his EGD 4 years ago showed esophagitis. He denies nausea, vomiting, abdominal pain, change in bowel habits, or urinary symptoms at this time. Patient states he does not feel comfortable returning home today. No additional complaints or concerns at this time. Physical Exam Physical Exam: General: No acute distress, nondiaphoretic, well-developed, well-nourished. Skin: The skin was without rashes, erythema, edema, or bruising. Cardiac: Regular rate and rhythm without murmurs gallops or rubs. Pulm: Clear to auscultation bilaterally without wheezes, rales or rhonchi. No respiratory distress. 97% on room air. Abdominal: Soft, nontender, nondistended. Bowel sounds present. No hernia, masses, or organomegaly noted. Neuro: A&O x3. No focal neurological deficits. Results & Data Results & Data Vital Signs (Past 12 Hours) Vital Signs Temp Pulse Resp BP Pulse Ox O2 Del Method 08/03/24 08:25 Room Air 08/03/24 07:21 98.1 F 64 14 156/71 H 97 Room Air Laboratory Results Reviewed CBC Reviewed BMP PG Care Time/CCT Total # of Minutes Spent Total Time Spent with Patient: Total time spent is greater than 50% in coordination of care (as documented) at patient's floor/unit and/or counseling patient: Coding Level of Care Code 88917 SUB INP/OBS CARE 3/50MIN Diagnoses GERD (gastroesophageal reflux disease) K21.9 Mass of right kidney N28.89 Diabetes mellitus with complication E11.8
--- NOTE | 2024-08-03 14:43 | Gastrointestinal Consultation ---
Date of Consultation August 03, 2024 Assessment & Plan (1) GERD (gastroesophageal reflux disease): 69 year old male with history of DM (diet controlled), dyslipidemia, anemia and others below admitted for management of nausea/vomiting and fevers following influenzae vaccination - GI was asked to evaluate for dyspepsia and weight loss. 1. Weight loss - CTAP reviewed - Renal mass needs additional work up - Will defer to the primary service - Given his smoking history, recommend lung CA screening if not already completed - EGD/Colonoscopy - These are scheduled 10/07/24 - Will discuss timing w/ attending 2. Heartburn, reflux/regurgitation and belching - ETOH cessation recommended - Smoking cessation recommended - Other GERD dietary and lifestyle changes discussed - Pantoprazole 40 mg twice daily until endoscopic evaluation - May used Pepcid 20 mg as needed I spent a total of 60 minutes on the date of service in review of patient's record, and previously obtained information in person and appropriate medical visit, discussion and education of plan, with patient and/or caregiver, placing orders for tests/referral/procedures as medically necessary and documentation of pertinent clinical information in patient's medical records for their visit today. Discussed with attending, elective, non-emergent EGD/Colonoscopy. Discussed with primary team who was again hoping to have this arranged this admission. We would be able to arrange endoscopci evaluation Saturday. Would need clear liquids tomorrow and golytely bowel prep tomorrow. Supervising Physician Co-Signing Physician Notes I examined the patient and reviewed the medical record, laboratory data and imaging studies. I agree with the assessment and plan of care as suggested by the advanced practice provider. Patient appears comfortable he states he has been having chronic weight loss over the last few years and it has progressively gotten worse he does complain of early satiety he also complains of burping and some abdominal discomfort he had an EGD in the past which showed esophagitis but has not been taking any medications never had a colonoscopy he had a CT scan which did not show any pancreatic lesion however it did show a renal lesion which on ultrasound was also suspicious and further workup was recommended in view of his weight loss as well as the fact that he is not eating well and the fact that he has never had a colonoscopy will plan for an EGD and a colonoscopy please place on clear liquid diet in a.m. and will prep for EGD and colon History of Present Illness Reason for Consultation: dyspepsia and weight loss Requesting Physician: Caleb Loving MD Attending Physician: Caleb Loving MD History of Present Illness 69 year old male with history of DM (diet controlled) admitted for management of nausea/vomiting and fevers following influenzae vaccination - GI was asked to evaluate for dyspepsia and weight loss. Pt was seen and evaluated, chart reviewed. He was seen two weeks ago by Marleny Mary PA-C in the GI clinic and and EGD/Colonoscopy were ordered to evaluate for his symptoms. He denies any change in his symptoms since this office visit. He endorses a 30+ year history of heartburn, reflux/regurgitation, burping and belching. Symptoms daily. Pepcid was not effective. He denies dysphagia. He does not typically report any abd pain, nausea/vomiting. Again did have nausea/vomiting recently thought related to vaccination side effect. Suggests his bowels moving daily. No report of black or bloody stools. He reports a 20 lb weight loss over the last two years. + 1 PPD smoking + 2-3 beers daily for many years Denies NSAIDs CTAP 2023: 1. Incompletely assessed partially collapsed stomach. There is no visible mass, intestinal obstruction, thickening or inflammatory process. 2. Hypodense mass right renal midpole measures approximately 2 cm. No lesion was identified on the prior ultrasound which included the right kidney. Diagnostic considerations include complex cyst, abscess and neoplasm. Dedicated renal ultrasound recommended to further assess. EGD 2018: - LA Grade A reflux esophagitis. - Small hiatal hernia. - Gastritis. Biopsied. - Normal examined duodenum. Colonoscopy: none Family history of GI malignancy: none Allergies Allergy/AdvReac Type Severity Reaction Status Date / Time No Known Allergies Allergy Verified 07/16/24 10:38 Patient History Medical History Hyperglycemia Pancreatitis 05/17/18 treated at [facility] GERD (gastroesophageal reflux disease) Surgical History History of tonsillectomy Family History Sister Breast cancer Grandfather Myocardial infarction Father Alzheimer disease Denies family history of Ovarian cancer Prostate cancer Colorectal cancer Social History Smoking Status: Heavy tobacco smoker Tobacco Type: Cigarettes Age Started Using Tobacco: 19; packs per day: 1; Cigarettes Per Day: 20; Second Hand Exposure: No; Do You Dip or Chew Tobacco: No; Tobacco Cessation Education Requested by Patient: No Hx Alcohol Use: Yes Alcohol type: wine Alcohol Intake Frequency: 4 or More x per/Week Alcohol Intake Frequency Comment: Pt stated, "I will drink about 2 beers a day." Hx Substance Use: Yes Preferred Language: Malay Communication Ability: Effective Client Delivery Manager Required: No Beliefs That Will Affect Care: None Current Living Situation: Alone current occupational status: retired Other Information That Helps Us Care for You: No Feels Safe at Home: Yes Safety Concerns: Feels Safe At This Time Diet: diabetic during the past year weight has: decreased > 10 lbs Dental Care, Regularly: No Physical Activity Frequency: Daily Seatbelt Use: always Assistive Devices: None Review of Systems Review of Systems: All other findings negative except as noted in HPI. Physical Exam Constitutional: WD/WN, vitals as above Respiratory: normal respiratory effort Cardiovascular: Rate/Rhythm: regular rate and regular rhythm Gastrointestinal (Abdomen): normal bowel sounds, soft, nontender, no hepatosplenomegaly Skin: no rashes, warm and dry Results & Data Vital Signs (Past 12 Hours) Vital Signs Temp Pulse Resp BP Pulse Ox O2 Del Method 08/03/24 08:25 Room Air 08/03/24 07:21 36.7 C 64 14 156/71 H 97 Room Air Laboratory Results 08/03/24 08/03/24 08/03/24 Range/Units 11:36 07:36 07:06 WBC 10.09 (4.8-10.8) K/ul RBC 4.11 L (4.70-6.10) M/uL Hgb 12.4 L (14.0-18.0) g/dl Hct 37.6 L (42.0-52.0) % MCV 91.5 (80.0-100.0) fL MCH 30.2 (25.0-34.0) pg MCHC 33.0 (32.0-36.0) g/dL RDW Std Deviation 46.1 (36.4-46.3) fL RDW Coeff of Poli 13.6 (11.5-14.5) % Plt Count 197 (130-400) K/uL MPV 10.8 (9.4-12.4) fL Immature Gran % (Auto) 0.3 % Neut % (Auto) 74.2 % Lymph % (Auto) 17.7 % Warren % (Auto) 6.8 % Eos % (Auto) 0.6 % Baso % (Auto) 0.4 % Neut # (Auto) 7.48 H (1.40-6.50) K/uL Lymph # (Auto) 1.79 (1.20-3.40) K/uL Warren # (Auto) 0.69 H (0.11-0.59) K/uL Eos # (Auto) 0.06 (0.00-0.50) K/uL Baso # (Auto) 0.04 (0.00-0.20) K/uL Immature Gran # (Auto) 0.03 (0.01-0.20) K/uL Sodium 141 (136-145) mmol/L Potassium 3.8 (3.5-5.1) mmol/L Chloride 107 (98-107) mmol/L Carbon Dioxide 29 (21-32) mmol/L Anion Gap 5 (3-11) BUN 22 (6-23) mg/dl Creatinine 0.62 (0.6-1.4) mg/dl Est Cr Clr Drug Dosing 104.6 ml/min eGFR 103.47 BUN/Creatinine Ratio 35.5 H (10-20) Glucose 111 H (70-99(Fasting)) mg/dl POC Glucose 109 H 103 H (70-99) mg/dl Estimat Average Glucose 128 mg/dl Hemoglobin A1c 6.1 H (4.5-5.6) % Lactate (0.4-2.0) mmol/L Calcium 8.9 (8.6-10.3) mg/dl Phosphorus 2.7 (2.5-4.9) mg/dl Magnesium 2.1 (1.7-2.4) mg/dl Total Bilirubin (0.2-1.0) mg/dl AST (13-39) U/L ALT (7-52) U/L Alkaline Phosphatase (34-104) U/L Total Protein (6.0-8.3) gm/dl Albumin 3.3 L (3.4-5.0) gm/dl Globulin (2.5-4.0) gm/dl Albumin/Globulin Ratio (0.9-2) Lipase (11-82) U/L Procalcitonin (0-0.5) ng/ml Urine Color Urine Appearance (Clear) Urine pH (4.5-7.5) Ur Specific [place] (1.000-1.030) Urine Protein (Negative) Urine Glucose (UA) (Negative) Urine Ketones (Negative) Urine Blood (Negative) Urine Nitrite (Negative) Urine Bilirubin (Negative) Urine Urobilinogen (Negative) Ur Leukocyte Esterase (Negative) Urine WBC (Auto) (0-5) /hpf Urine RBC (Auto) (0-2) /hpf U Hyaline Cast (Auto) (0-2) /lpf U Epithel Cells (Auto) (0-2) /hpf Urine Bacteria (Auto) (None Seen) Adenovirus (PCR) (NotDetected) B. pertussis DNA (PCR) (NotDetected) B.parapertussis DNA PCR (NotDetected) C. pneumoniae DNA (PCR) (NotDetected) Coronavirus OC43 (PCR) (NotDetected) Coronavirus HKU1 (PCR) (NotDetected) Coronavirus 229E (PCR) (NotDetected) SARS-CoV-2 (PCR) (NotDetected) Coronavirus NL63 (PCR) (NotDetected) Human Metapneumovir PCR (NotDetected) Influenza Type A (PCR) (NotDetected) Influenza Type B (PCR) (NotDetected) M. pneumoniae (PCR) (NotDetected) Parainfluenza 1 (PCR) (NotDetected) Parainfluenza 2 (PCR) (NotDetected) Parainfluenza 3 (PCR) (NotDetected) Parainfluenza 4 (PCR) (NotDetected) RSV (PCR) (NotDetected) Entero/Rhino (PCR) (NotDetected) 08/02/24 08/02/24 08/02/24 Range/Units 23:58 20:15 19:50 WBC (4.8-10.8) K/ul RBC (4.70-6.10) M/uL Hgb (14.0-18.0) g/dl Hct (42.0-52.0) % MCV (80.0-100.0) fL MCH (25.0-34.0) pg MCHC (32.0-36.0) g/dL RDW Std Deviation (36.4-46.3) fL RDW Coeff of Poli (11.5-14.5) % Plt Count (130-400) K/uL MPV (9.4-12.4) fL Immature Gran % (Auto) % Neut % (Auto) % Lymph % (Auto) % Warren % (Auto) % Eos % (Auto) % Baso % (Auto) % Neut # (Auto) (1.40-6.50) K/uL Lymph # (Auto) (1.20-3.40) K/uL Warren # (Auto) (0.11-0.59) K/uL Eos # (Auto) (0.00-0.50) K/uL Baso # (Auto) (0.00-0.20) K/uL Immature Gran # (Auto) (0.01-0.20) K/uL Sodium (136-145) mmol/L Potassium (3.5-5.1) mmol/L Chloride (98-107) mmol/L Carbon Dioxide (21-32) mmol/L Anion Gap (3-11) BUN (6-23) mg/dl Creatinine (0.6-1.4) mg/dl Est Cr Clr Drug Dosing ml/min eGFR BUN/Creatinine Ratio (10-20) Glucose (70-99(Fasting)) mg/dl POC Glucose 122 H (70-99) mg/dl Estimat Average Glucose mg/dl Hemoglobin A1c (4.5-5.6) % Lactate 1.0 (0.4-2.0) mmol/L Calcium (8.6-10.3) mg/dl Phosphorus (2.5-4.9) mg/dl Magnesium (1.7-2.4) mg/dl Total Bilirubin (0.2-1.0) mg/dl AST (13-39) U/L ALT (7-52) U/L Alkaline Phosphatase (34-104) U/L Total Protein (6.0-8.3) gm/dl Albumin (3.4-5.0) gm/dl Globulin (2.5-4.0) gm/dl Albumin/Globulin Ratio (0.9-2) Lipase (11-82) U/L Procalcitonin 0.38 (0-0.5) ng/ml Urine Color Yellow Urine Appearance Clear (Clear) Urine pH 5.5 (4.5-7.5) Ur Specific [place] > 1.045 H (1.000-1.030) Urine Protein Trace H (Negative) Urine Glucose (UA) Negative (Negative) Urine Ketones Negative (Negative) Urine Blood Negative (Negative) Urine Nitrite Negative (Negative) Urine Bilirubin Negative (Negative) Urine Urobilinogen Negative (Negative) Ur Leukocyte Esterase Negative (Negative) Urine WBC (Auto) 0-5 (0-5) /hpf Urine RBC (Auto) 0-2 (0-2) /hpf U Hyaline Cast (Auto) 0-2 (0-2) /lpf U Epithel Cells (Auto) 0-2 (0-2) /hpf Urine Bacteria (Auto) None Seen (None Seen) Adenovirus (PCR) (NotDetected) B. pertussis DNA (PCR) (NotDetected) B.parapertussis DNA PCR (NotDetected) C. pneumoniae DNA (PCR) (NotDetected) Coronavirus OC43 (PCR) (NotDetected) Coronavirus HKU1 (PCR) (NotDetected) Coronavirus 229E (PCR) (NotDetected) SARS-CoV-2 (PCR) (NotDetected) Coronavirus NL63 (PCR) (NotDetected) Human Metapneumovir PCR (NotDetected) Influenza Type A (PCR) (NotDetected) Influenza Type B (PCR) (NotDetected) M. pneumoniae (PCR) (NotDetected) Parainfluenza 1 (PCR) (NotDetected) Parainfluenza 2 (PCR) (NotDetected) Parainfluenza 3 (PCR) (NotDetected) Parainfluenza 4 (PCR) (NotDetected) RSV (PCR) (NotDetected) Entero/Rhino (PCR) (NotDetected) 08/02/24 Range/Units 17:50 WBC 15.32 H (4.8-10.8) K/ul RBC 4.94 (4.70-6.10) M/uL Hgb 15.1 (14.0-18.0) g/dl Hct 44.9 (42.0-52.0) % MCV 90.9 (80.0-100.0) fL MCH 30.6 (25.0-34.0) pg MCHC 33.6 (32.0-36.0) g/dL RDW Std Deviation 45.3 (36.4-46.3) fL RDW Coeff of Poli 13.5 (11.5-14.5) % Plt Count 270 (130-400) K/uL MPV 10.2 (9.4-12.4) fL Immature Gran % (Auto) 0.3 % Neut % (Auto) 84.1 % Lymph % (Auto) 9.7 % Warren % (Auto) 5.7 % Eos % (Auto) 0.1 % Baso % (Auto) 0.1 % Neut # (Auto) 12.87 H (1.40-6.50) K/uL Lymph # (Auto) 1.49 (1.20-3.40) K/uL Warren # (Auto) 0.88 H (0.11-0.59) K/uL Eos # (Auto) 0.02 (0.00-0.50) K/uL Baso # (Auto) 0.02 (0.00-0.20) K/uL Immature Gran # (Auto) 0.04 (0.01-0.20) K/uL Sodium 145 (136-145) mmol/L Potassium 4.0 (3.5-5.1) mmol/L Chloride 104 (98-107) mmol/L Carbon Dioxide 32 (21-32) mmol/L Anion Gap 9 (3-11) BUN 31 H (6-23) mg/dl Creatinine 0.81 (0.6-1.4) mg/dl Est Cr Clr Drug Dosing 80.5 ml/min eGFR 95.44 BUN/Creatinine Ratio 38.3 H (10-20) Glucose 173 H (70-99(Fasting)) mg/dl POC Glucose (70-99) mg/dl Estimat Average Glucose mg/dl Hemoglobin A1c (4.5-5.6) % Lactate (0.4-2.0) mmol/L Calcium 10.3 (8.6-10.3) mg/dl Phosphorus (2.5-4.9) mg/dl Magnesium (1.7-2.4) mg/dl Total Bilirubin 0.7 (0.2-1.0) mg/dl AST 18 (13-39) U/L ALT 19 (7-52) U/L Alkaline Phosphatase 91 (34-104) U/L Total Protein 7.7 (6.0-8.3) gm/dl Albumin 4.2 (3.4-5.0) gm/dl Globulin 3.5 (2.5-4.0) gm/dl Albumin/Globulin Ratio 1.2 (0.9-2) Lipase 35 (11-82) U/L Procalcitonin (0-0.5) ng/ml Urine Color Urine Appearance (Clear) Urine pH (4.5-7.5) Ur Specific [place] (1.000-1.030) Urine Protein (Negative) Urine Glucose (UA) (Negative) Urine Ketones (Negative) Urine Blood (Negative) Urine Nitrite (Negative) Urine Bilirubin (Negative) Urine Urobilinogen (Negative) Ur Leukocyte Esterase (Negative) Urine WBC (Auto) (0-5) /hpf Urine RBC (Auto) (0-2) /hpf U Hyaline Cast (Auto) (0-2) /lpf U Epithel Cells (Auto) (0-2) /hpf Urine Bacteria (Auto) (None Seen) Adenovirus (PCR) Not Detected (NotDetected) B. pertussis DNA (PCR) Not Detected (NotDetected) B.parapertussis DNA PCR Not Detected (NotDetected) C. pneumoniae DNA (PCR) Not Detected (NotDetected) Coronavirus OC43 (PCR) Not Detected (NotDetected) Coronavirus HKU1 (PCR) Not Detected (NotDetected) Coronavirus 229E (PCR) Not Detected (NotDetected) SARS-CoV-2 (PCR) Not Detected (NotDetected) Coronavirus NL63 (PCR) Not Detected (NotDetected) Human Metapneumovir PCR Not Detected (NotDetected) Influenza Type A (PCR) Not Detected (NotDetected) Influenza Type B (PCR) Not Detected (NotDetected) M. pneumoniae (PCR) Not Detected (NotDetected) Parainfluenza 1 (PCR) Not Detected (NotDetected) Parainfluenza 2 (PCR) Not Detected (NotDetected) Parainfluenza 3 (PCR) Not Detected (NotDetected) Parainfluenza 4 (PCR) Not Detected (NotDetected) RSV (PCR) Not Detected (NotDetected) Entero/Rhino (PCR) Not Detected (NotDetected) PG Care Time/CCT Total # of Minutes Spent Total Time Spent with Patient: Total time spent is greater than 50% in coordination of care (as documented) at patient's floor/unit and/or counseling patient: Coding Level of Care Code 02137 IN/OBS CONSULT LVL 3,45M Diagnoses GERD (gastroesophageal reflux disease) K21.9
--- NOTE | 2024-08-03 16:00 | Electrocardiogram Report ---
Test Reason : Blood Pressure : */* mmHG Vent. Rate : 83 BPM Atrial Rate : 83 BPM P-R Int : 134 ms QRS Dur : 82 ms QT Int : 368 ms P-R-T Axes : 83 16 38 degrees QTcB Int : 432 ms Sinus rhythm with Premature atrial complexes Nonspecific T wave abnormality Abnormal ECG When compared with ECG of 17-Feb-2023 17:45, Premature ventricular complexes are no longer Present Premature atrial complexes are now Present Confirmed by Michael Pepe [id number]) on 08/03/2024 4:00:16 PM Referred By: REFERRED SELF Confirmed By: Michael Pepe
--- NOTE | 2024-08-03 17:42 | CT Scan Report ---
EXAMINATION: Abdomen CT without CLINICAL HISTORY: Complex right renal pole mass on ultrasound, CT recommended PRIORS: CT Abd 08/02/2024 with contrast TECHNIQUE: Contiguous axial images were obtained through the abdomen and pelvis without the use of intravenous contrast. Sagittal and coronal reformations are supplied. FINDINGS: Lung bases are unremarkable. A hyperdense renal mass is present in the right kidney, interpolar region, image 27, series 2. Allowing for noncontrast enhanced technique, this measures approximately 2.2 x 2.0 cm. The periphery is slightly hyperdense with respect to renal parenchyma and mildly low attenuation in the center. It is approximately round in shape. No perinephric stranding, hydronephrosis or obstructing calculus. The contralateral left kidney is unremarkable. No retroperitoneal adenopathy. Moderate to advanced atherosclerotic disease of the abdomen. The noncontrast enhanced liver, gallbladder, pancreas, spleen, stomach, adrenals are unremarkable. Large amount of formed stool in the visualized colon. IMPRESSION: Complicated right renal cystic mass measuring up to 2.2 cm. When compared to the abdomen CT from 08/02/2024 performed with intravenous contrast, the differential diagnosis includes a complicated cyst, abscess or cystic neoplasm. Urology consultation and" will follow-up as suggested. ACT 112: Positive. There are findings on this examination that require communication between the performing entity and the patient following Patient Test Result Information Act ([place] ACT 112) guidelines. Electronically signed by Vero Flaherty 08-03-2024 5:42 PM
[2024-08-04 07:43] LABS: Albumin Level 3.3 gm/dl (3.4-5.0); Calcium 8.7 mg/dl (8.6-10.3); Magnesium 2.1 mg/dl (1.7-2.4); Potassium 3.7 mmol/L (3.5-5.1)
[2024-08-04 07:49] LABS: BUN Creatinine Ratio 25.8 (10-20); Creatinine Clr Calc Pharmacy 104.6 ml/min; Phosphorus 2.8 mg/dl (2.5-4.9)
--- NOTE | 2024-08-04 08:03 | Hospitalist Progress Note ---
Date of Service August 04, 2024 Assessment & Plan (1) GERD (gastroesophageal reflux disease): Plan: Presented with nausea, vomiting, dehydration x 3 days after receiving influenza vaccine. Review of PCP notes patient has been dealing with GERD for >1 year with associated post-prandial discomfort with dysphagia, had been on famotidine once daily with reports of constipation with increase to BID. Had been noted to have "low blood counts" when donating blood earlier this year as well.Has tried lifestyle modifications with minimal benefit History significant for new onset dyspepsia >60 y/o, 15-20 pound weight loss in last year, moderate alcohol use, and 1 ppd smoking history x 50 years Has followed with GI outpatient for GERD symptoms, and per note on 07/16/24, patient has declined starting daily therapy EGD from 2018 significant for esophagitis GI consulted, plans for c-scope/EGD with Dr Benjamin tomorrow Liquid diet for today Golytely prep ordered by GI and plans for EGD/c-scope 08/05 given red flag sx - Protoninx once daily started, further recs following endoscopy, pepcid as needed NPO at midnight Monitor labs/PSA w/ AM Smoking cessation encouraged, will need screening CT chest given CT renal w/ mass as below (2) Mass of right kidney: Plan: Right renal midpole mass noted on CT A/P. UA did NOT appear infected on admission Renal US noted complex R kidney midpole mass measuring 2.6cm, CT recommended Renal CT w/ reports complicated right renal cystic mass measuring up to 2.2 cm. When compared to the abdomen CT from 08/02/2024 performed with intravenous contrast, the differential diagnosis includes a complicated cyst, abscess or cystic neoplasm. Urology consultation and" will follow-up as suggested. Urine cytology with reflex FISH pending Urology consulted while inpatient, suspect will need further work-up (also needs CT chest for screening given smoking hx and brother w/ hx lung ca) (3) Diabetes mellitus with complication: Plan: Glucose 173 on admission. A1c 6.1% Metformin on hold and using SSI while inpatient and BSGs acceptable and will LOOSEN parameters/monitor (4) Cigarette smoker: Plan: Tobacco use disorder - Feels he will not need a nicotine patch, but will ask if he changes his mind NEEDS CT CHEST SCREENING, likely can be done outpatient given above as needing further work-up. No SOB reported and remains on RA 98% presently Plan Dispo: liquid diet today, bowel prep and NPO at midnight for EGD/c-scope Urology consulted given CT renal, urine/FISH pending and likely needing outpt f/u *Will need CT chest as outlined given brother w/ hx lung ca and patient w/ smoking hx not yet completed given his weight loss/GERD Admission and Anticipated Discharge Date Admission Date: August 02, 2024 Supervising Physician Co-Signing Physician Notes The patient was not seen by me. The chart was reviewed. Case discussed with SHELLIE Nazario. Agree with assessment and plan Subjective Evaluated this morning, feeling better than prior days. Eating clear liquid diet this morning, and actually reports for the first time considering asking for seconds but concerned about it coming back up. Was given zofran this morning, started on protonix. Does NOT take any NSAIDs, only reports taking TUMs. Had been on famotidine for a while without significant improvement but did report feeling slightly better last year and has intermittent issues with his swallowing but last year had a period of time when he was regurgitating his food. Does have smoking hx, suspect at least underlying barretts but do have concerns for malignancy. Discussed CT findings with renal mass, urology consult while inpatient to get the ball rolling but suspect likely outpatient follow up for further testing/management. Does have family history. Brother w/ hx lung ca, sister is a breast cancer survivor. Not sure what brother's started as but ultimately from lung ca, ?prostate. Discussed likely continue at least PPI once if not twice daily but will await scope results. Physical Exam 2 Physical Exam: General 69 yo male sitting up in bed, eating liquid breakfast, NAD, reports feeling better (does appear malnourished though) HEENT: head atraumatic, normocephalic, mm slightly dry, trachea midline Resp; even/unlabored, bibasilar crackles but no wheezing/rales, on ROOM AIR CV: RRR< no significant m/r/g, no pitting edema GI: +BS, soft, slight distension but nontender no rodriguez MSK/Neuro: nonfocal but generalized weakness, answering questions appropriately Psych: AOx3, cooperative with exam Results & Data Results & Data Vital Signs (Past 12 Hours) Vital Signs Temp Pulse Resp BP Pulse Ox O2 Del Method 08/04/24 07:25 36.9 C 60 17 148/72 H 98 Room Air 08/03/24 20:28 36.6 C 52 L 16 158/74 H 99 Room Air Laboratory Results 08/04/24 07:59 08/04/24 06:59 Mag 2.1 Albumin 3.3 Phos 2.[address] 08/03/24 16:54 EXAMINATION: Abdomen CT without CLINICAL HISTORY: Complex right renal pole mass on ultrasound, CT recommended PRIORS: CT Abd 08/02/2024 with contrast TECHNIQUE: Contiguous axial images were obtained through the abdomen and pelvis without the use of intravenous contrast. Sagittal and coronal reformations are supplied. FINDINGS: Lung bases are unremarkable. A hyperdense renal mass is present in the right kidney, interpolar region, image 27, series 2. Allowing for noncontrast enhanced technique, this measures approximately 2.2 x 2.0 cm. The periphery is slightly hyperdense with respect to renal parenchyma and mildly low attenuation in the center. It is approximately round in shape. No perinephric stranding, hydronephrosis or obstructing calculus. The contralateral left kidney is unremarkable. No retroperitoneal adenopathy. Moderate to advanced atherosclerotic disease of the abdomen. The noncontrast enhanced liver, gallbladder, pancreas, spleen, stomach, adrenals are unremarkable. Large amount of formed stool in the visualized colon. IMPRESSION: Complicated right renal cystic mass measuring up to 2.2 cm. When compared to the abdomen CT from 08/02/2024 performed with intravenous contrast, the differential diagnosis includes a complicated cyst, abscess or cystic neoplasm. Urology consultation and" will follow-up as suggested. ACT 112: Positive. There are findings on this examination that require communication between the performing entity and the patient following Patient Test Result Information Act ([place] ACT 112) guidelines. Electronically signed by Vero Flaherty 08-03-2024 5:42 PM PG Care Time/CCT Total # of Minutes Spent Total Time Spent with Patient: Total time spent is greater than 50% in coordination of care (as documented) at patient's floor/unit and/or counseling patient: Coding Level of Care Code 72634 SUB INP/OBS CARE 3/50MIN Diagnoses GERD (gastroesophageal reflux disease) K21.9 Mass of right kidney N28.89 Diabetes mellitus with complication E11.8 Cigarette smoker F17.210
[2024-08-04 08:36] LABS: Basophils # (auto) 0.04 K/uL (0.00-0.20); Basophils % (auto) 0.5 %; Eosinophils # (auto) 0.08 K/uL (0.00-0.50); Hematocrit (blood only) 37.4 % (42.0-52.0); Hemoglobin 12.3 g/dl (14.0-18.0); Immature Granulocytes # (auto) 0.03 K/uL (0.01-0.20); Immature Granulocytes % (auto) 0.4 %; Lymphocytes # (auto) 1.94 K/uL (1.20-3.40); Lymphocytes % (auto) 23.9 %; Mean Corpuscular Hemoglobin 29.8 pg (25.0-34.0); Mean Corpuscular Hgb Conc 32.9 g/dL (32.0-36.0); Mean Corpuscular Volume 90.6 fL (80.0-100.0); Mean Platelet Volume 10.2 fL (9.4-12.4); Monocytes # (auto) 0.55 K/uL (0.11-0.59); Monocytes % (auto) 6.8 %; Neutrophils # (auto) 5.49 K/uL (1.40-6.50); Neutrophils % (auto) 67.4 %; Platelet Count 187 K/uL (130-400); RDW Coefficient of Variation 13.2 % (11.5-14.5); RDW Standard Deviation 43.8 fL (36.4-46.3); Red Blood Count 4.13 M/uL (4.70-6.10); White Blood Count 8.13 K/ul (4.8-10.8)
--- NOTE | 2024-08-04 09:55 | Gastroenterology Progress Note ---
Date of Service August 04, 2024 Assessment & Plan (1) GERD (gastroesophageal reflux disease): Plan: 69 year old male with history of DM (diet controlled), dyslipidemia, anemia and others below admitted for management of nausea/vomiting and fevers following inf luenzae vaccination - GI was asked to evaluate for dyspepsia and weight loss. 1. Weight loss - CTAP reviewed - Renal mass needs additional work up - Will defer to the primary service - Given his smoking history, recommend lung CA screening if not already completed - Clear liquids today - Golytely this afternoon - NPO after midnight - EGD/Colonoscopy Saturday 2. Heartburn, reflux/regurgitation and belching - ETOH cessation recommended - Smoking cessation recommended - Other GERD dietary and lifestyle changes discussed - Pantoprazole 40 mg twice daily until endoscopic evaluation - January used Pepcid 20 mg as needed I spent a total of 40 minutes on the date of service in review of patient's record, and previously obtained information in person and appropriate medical visit, discussion and education of plan, with patient and/or caregiver, placing orders for tests/referral/procedures as medically necessary and documentation of pertinent clinical information in patient's medical records for their visit today. Admission and Anticipated Discharge Date Admission Date: August 02, 2024 Supervising Physician Co-Signing Physician Notes I examined the patient and reviewed the medical record, laboratory data and imaging studies. I agree with the assessment and plan of care as suggested by the advanced practice provider. Patient appears comfortable he does not have any active GI complaints at that time present time. Will plan for EGD and colonoscopy in a.m. and further recommendations after endoscopy is also getting urological workup for renal lesion Subjective Pt was seen and evaluated, chart reviewed. Agreeable to EGD/Colon Saturday. On a liquid diet now - golytely to start this afternoon. Denies any concerns. Review of Systems Review of Systems: All other findings negative except as noted in HPI. Physical Exam Constitutional: WD/WN, vitals as above Respiratory: normal respiratory effort Cardiovascular: Rate/Rhythm: regular rate Gastrointestinal (Abdomen): normal bowel sounds, soft, nontender, no hepatosplenomegaly Skin: no rashes, warm and dry Results & Data Results & Data Vital Signs (Past 12 Hours) Vital Signs Temp Pulse Resp BP Pulse Ox O2 Del Method 08/04/24 07:25 36.9 C 60 17 148/72 H 98 Room Air Laboratory Results 08/04/24 08/04/24 08/04/24 Range/Units 07:59 07:45 07:08 WBC 8.13 Cancelled RBC 4.13 L Cancelled Hgb 12.3 L Cancelled Hct 37.4 L Cancelled MCV 90.6 Cancelled MCH 29.8 Cancelled MCHC 32.9 Cancelled RDW Std Deviation 43.8 Cancelled RDW Coeff of Poli 13.2 Cancelled Plt Count 187 Cancelled MPV 10.2 Cancelled Immature Gran % (Auto) 0.4 Cancelled Neut % (Auto) 67.4 Cancelled Lymph % (Auto) 23.9 Cancelled Ware % (Auto) 6.8 Cancelled Eos % (Auto) 1.0 Cancelled Baso % (Auto) 0.5 Cancelled Neut # (Auto) 5.49 Cancelled Lymph # (Auto) 1.94 Cancelled Ware # (Auto) 0.55 Cancelled Eos # (Auto) 0.08 Cancelled Baso # (Auto) 0.04 Cancelled Immature Gran # (Auto) 0.03 Cancelled Absolute Nucleated RBC Cancelled Nucleated RBC % (auto) Cancelled Neutrophils % (Manual) Cancelled Band Neutrophils % Cancelled Lymphocytes % (Manual) Cancelled Prolymphocyte % Cancelled Reactive Lymphs % (Man) Cancelled Monocytes % (Manual) Cancelled Eosinophils % (Manual) Cancelled Basophils % (Manual) Cancelled Metamyelocytes % (Man) Cancelled Myelocytes % (Man) Cancelled Promyelocytes % (Man) Cancelled Blast Cells % (Manual) Cancelled Plasma Cell % (Manual) Cancelled Other Cells % Cancelled Nucleated RBC % Cancelled Neutrophils # (Manual) Cancelled Band Neutrophils # Cancelled Total Absolute Neuts Cancelled Lymphocytes # (Manual) Cancelled Prolymphocyte # Cancelled Reactive Lymphs # Cancelled Total Abs Lymphocytes Cancelled Monocytes # (Manual) Cancelled Eosinophils # (Manual) Cancelled Basophils # (Manual) Cancelled Metamyelocytes # (Man) Cancelled Myelocytes # (Manual) Cancelled Promyelocytes # (Man) Cancelled Blast Cells # (Man) Cancelled Plasma Cell # (Manual) Cancelled Other Cells # Cancelled Nucleated RBCs # (Man) Cancelled Hypersegmented Neuts Cancelled Hyposegmented Neuts Cancelled Hypogranular Neuts Cancelled Large Granular Lymphs Cancelled # Lrg Granular Lymphs Cancelled Hairy Cells Cancelled Smudge Cells Cancelled Toxic Granulation Cancelled Toxic Vacuolation Cancelled Dohle Bodies Cancelled [place]s Cancelled Platelet Estimate Cancelled Hypogranular Platelets Cancelled Giant Platelets Cancelled Platelet Satelliting Cancelled RBC Morphology Cancelled Polychromasia Cancelled Hypochromasia Cancelled Poikilocytosis Cancelled Basophilic Stippling Cancelled Anisocytosis Cancelled Microcytosis Cancelled Macrocytosis Cancelled Spherocytes Cancelled Pappenheimer Bodies Cancelled Sickle Cells Cancelled Target Cells Cancelled Tear Drop Cells Cancelled Ovalocytes Cancelled Stomatocytes Cancelled [place] Bodies Cancelled Echinocytes Cancelled Acanthocytes (Spur) Cancelled Rouleaux Cancelled RBC Agglutinates Cancelled Schistocytes Cancelled Sezary Cell Cancelled Sodium (136-145) mmol/L Potassium (3.5-5.1) mmol/L Chloride (98-107) mmol/L Carbon Dioxide (21-32) mmol/L Anion Gap (3-11) BUN (6-23) mg/dl Creatinine (0.6-1.4) mg/dl Est Cr Clr Drug Dosing ml/min eGFR BUN/Creatinine Ratio (10-20) Glucose (70-99(Fasting)) mg/dl POC Glucose 85 (70-99) mg/dl Calcium (8.6-10.3) mg/dl Phosphorus (2.5-4.9) mg/dl Magnesium (1.7-2.4) mg/dl Albumin (3.4-5.0) gm/dl Blood Parasites ID Cancelled 08/04/24 08/03/24 08/03/24 Range/Units 06:59 20:24 16:36 WBC RBC Hgb Hct MCV MCH MCHC RDW Std Deviation RDW Coeff of Poli Plt Count MPV Immature Gran % (Auto) Neut % (Auto) Lymph % (Auto) Ware % (Auto) Eos % (Auto) Baso % (Auto) Neut # (Auto) Lymph # (Auto) Ware # (Auto) Eos # (Auto) Baso # (Auto) Immature Gran # (Auto) Absolute Nucleated RBC Nucleated RBC % (auto) Neutrophils % (Manual) Band Neutrophils % Lymphocytes % (Manual) Prolymphocyte % Reactive Lymphs % (Man) Monocytes % (Manual) Eosinophils % (Manual) Basophils % (Manual) Metamyelocytes % (Man) Myelocytes % (Man) Promyelocytes % (Man) Blast Cells % (Manual) Plasma Cell % (Manual) Other Cells % Nucleated RBC % Neutrophils # (Manual) Band Neutrophils # Total Absolute Neuts Lymphocytes # (Manual) Prolymphocyte # Reactive Lymphs # Total Abs Lymphocytes Monocytes # (Manual) Eosinophils # (Manual) Basophils # (Manual) Metamyelocytes # (Man) Myelocytes # (Manual) Promyelocytes # (Man) Blast Cells # (Man) Plasma Cell # (Manual) Other Cells # Nucleated RBCs # (Man) Hypersegmented Neuts Hyposegmented Neuts Hypogranular Neuts Large Granular Lymphs # Lrg Granular Lymphs Hairy Cells Smudge Cells Toxic Granulation Toxic Vacuolation Dohle Bodies [place] Platelet Estimate Hypogranular Platelets Giant Platelets Platelet Satelliting RBC Morphology Polychromasia Hypochromasia Poikilocytosis Basophilic Stippling Anisocytosis Microcytosis Macrocytosis Spherocytes Pappenheimer Bodies Sickle Cells Target Cells Tear Drop Cells Ovalocytes Stomatocytes [place] Bodies Echinocytes Acanthocytes (Spur) Rouleaux RBC Agglutinates Schistocytes Sezary Cell Sodium 137 (136-145) mmol/L Potassium 3.7 (3.5-5.1) mmol/L Chloride 106 (98-107) mmol/L Carbon Dioxide 25 (21-32) mmol/L Anion Gap 6 (3-11) BUN 16 (6-23) mg/dl Creatinine 0.62 (0.6-1.4) mg/dl Est Cr Clr Drug Dosing 104.6 ml/min eGFR 103.47 BUN/Creatinine Ratio 25.8 H (10-20) Glucose 89 (70-99(Fasting)) mg/dl POC Glucose 111 H 123 H (70-99) mg/dl Calcium 8.7 (8.6-10.3) mg/dl Phosphorus 2.8 (2.5-4.9) mg/dl Magnesium 2.1 (1.7-2.4) mg/dl Albumin 3.3 L (3.4-5.0) gm/dl Blood Parasites ID 08/03/24 Range/Units 11:36 WBC RBC Hgb Hct MCV MCH MCHC RDW Std Deviation RDW Coeff of Poli Plt Count MPV Immature Gran % (Auto) Neut % (Auto) Lymph % (Auto) Ware % (Auto) Eos % (Auto) Baso % (Auto) Neut # (Auto) Lymph # (Auto) Ware # (Auto) Eos # (Auto) Baso # (Auto) Immature Gran # (Auto) Absolute Nucleated RBC Nucleated RBC % (auto) Neutrophils % (Manual) Band Neutrophils % Lymphocytes % (Manual) Prolymphocyte % Reactive Lymphs % (Man) Monocytes % (Manual) Eosinophils % (Manual) Basophils % (Manual) Metamyelocytes % (Man) Myelocytes % (Man) Promyelocytes % (Man) Blast Cells % (Manual) Plasma Cell % (Manual) Other Cells % Nucleated RBC % Neutrophils # (Manual) Band Neutrophils # Total Absolute Neuts Lymphocytes # (Manual) Prolymphocyte # Reactive Lymphs # Total Abs Lymphocytes Monocytes # (Manual) Eosinophils # (Manual) Basophils # (Manual) Metamyelocytes # (Man) Myelocytes # (Manual) Promyelocytes # (Man) Blast Cells # (Man) Plasma Cell # (Manual) Other Cells # Nucleated RBCs # (Man) Hypersegmented Neuts Hyposegmented Neuts Hypogranular Neuts Large Granular Lymphs # Lrg Granular Lymphs Hairy Cells Smudge Cells Toxic Granulation Toxic Vacuolation Dohle Bodies [place] Platelet Estimate Hypogranular Platelets Giant Platelets Platelet Satelliting RBC Morphology Polychromasia Hypochromasia Poikilocytosis Basophilic Stippling Anisocytosis Microcytosis Macrocytosis Spherocytes Pappenheimer Bodies Sickle Cells Target Cells Tear Drop Cells Ovalocytes Stomatocytes [place] Bodies Echinocytes Acanthocytes (Spur) Rouleaux RBC Agglutinates Schistocytes Sezary Cell Sodium (136-145) mmol/L Potassium (3.5-5.1) mmol/L Chloride (98-107) mmol/L Carbon Dioxide (21-32) mmol/L Anion Gap (3-11) BUN (6-23) mg/dl Creatinine (0.6-1.4) mg/dl Est Cr Clr Drug Dosing ml/min eGFR BUN/Creatinine Ratio (10-20) Glucose (70-99(Fasting)) mg/dl POC Glucose 109 H (70-99) mg/dl Calcium (8.6-10.3) mg/dl Phosphorus (2.5-4.9) mg/dl Magnesium (1.7-2.4) mg/dl Albumin (3.4-5.0) gm/dl Blood Parasites ID PG Care Time/CCT Total # of Minutes Spent Total Time Spent with Patient: Total time spent is greater than 50% in coordination of care (as documented) at patient's floor/unit and/or counseling patient: Coding Level of Care Code 76882 SUB INP/OBS CARE 2/35MIN Diagnoses GERD (gastroesophageal reflux disease) K21.9
--- NOTE | 2024-08-04 16:37 | Urology Consultation ---
<Statement entered by Jaime Alcala MD - 08/04/24 16:42> I have discussed Mr. Felder's case with EDVIN Coppola and agree with the above documentation. CT scan and ultrasound with lesion on the kidney suspicious for malignancy. We will plan for further characterization and management as an outpatient. -Jaime Alcala MD. Date of Consultation August 04, 2024 Assessment & Plan (1) Mass of right kidney: Plan 69 year old male with a past medical history including chronic tobacco use, history of DKA, history of necrotizing fasciitis, diabetes mellitus, anemia, GERD, and history of pancreatitis who presented with nausea/vomiting and fevers following influenza vaccination. Patient also noted to have dyspepsia and weight loss. He underwent CT abdomen pelvis and was incidentally found to have a right renal lesion. Urology consulted for right renal lesion, weight loss, and concern of malignancy. We reviewed his CT findings, specifically the complicated right renal cystic mass measuring up to 2.2 cm. Discussed renal masses and the difference between cyst and mass. Discussed possibility of malignancy. Discussed continued surveillance with imaging. We discussed that the right renal lesion is unlikely to be the cause of his w eight loss. He is undergoing further workup with EGD/colonoscopy tomorrow with GI. Will arrange outpatient follow-up with our service for further discussion and management of the renal lesion. No acute intervention warranted. Patient is agreeable to plan, all questions were answered. Urology will arrange follow-up. Please call with any further questions or concerns. History of Present Illness Attending Physician: Jeevan Hayes MD History of Present Illness 69 year old male with a past medical history including chronic tobacco use, history of DKA, history of necrotizing fasciitis, diabetes mellitus, anemia, GERD, and history of pancreatitis who presented with nausea/vomiting and fevers following influenza vaccination. Patient also noted to have dyspepsia and weight loss. He underwent CT abdomen pelvis and was incidentally found to have a right renal lesion. Urology has been consulted for right renal lesion, weight loss, and concern of malignancy. Chart review: Afebrile, mildly hypertensive, otherwise stable vitals Labs (08/04/2024): WBC 8.13, creatinine 0.62 Urinalysis 08/02/2024 without signs of infection or blood Blood cultures 08/02/2024 preliminary x [address] abd pelvis 08/02/24 - Hypodense mass right renal midpole measures approximately 2 cm. No lesion was identified on the prior ultrasound which included the right kidney. Renal ultrasound 08/02/24 - Complex right kidney midpole mass measuring 2.6 cm. Further characterization with renal mass protocol MRI or CT recommended. Renal CT without contrast 08/03/24-Complicated right renal cystic mass measuring up to 2.2 cm. When compared to the abdomen CT from 08/02/2024 performed with intravenous contrast, the differential diagnosis includes a complicated cyst, abscess or cystic neoplasm. Patient seen at bedside today. Awake and sitting up in bed on arrival. No acute distress. He reports feeling better overall since admission. States he is scheduled for an EGD/colonoscopy tomorrow. He denies prior urological history. Denies personal or family history of malignancy. Current smoker. Allergies Allergy/AdvReac Type Severity Reaction Status Date / Time No Known Allergies Allergy Verified 07/16/24 10:38 Patient History Medical History Hyperglycemia Pancreatitis 05/17/18 treated at [facility] GER[facility] (gastroesophageal reflux disease) Surgical History History of tonsillectomy Family History Sister Breast cancer Grandfather Myocardial infarction Father Alzheimer disease Denies family history of Ovarian cancer Prostate cancer Colorectal cancer Social History Smoking Status: Heavy tobacco smoker Tobacco Type: Cigarettes Age Started Using Tobacco: 19; packs per day: 1; Cigarettes Per Day: 20; Second Hand Exposure: No; Do You Dip or Chew Tobacco: No; Tobacco Cessation Education Requested by Patient: No Hx Alcohol Use: Yes Alcohol type: wine Alcohol Intake Frequency: 4 or More x per/Week Alcohol Intake Frequency Comment: Pt stated, "I will drink about 2 beers a day." Hx Substance Use: Yes Preferred Language: Irish Communication Ability: Effective 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 Required: No Beliefs That Will Affect Care: None Current Living Situation: Alone current occupational status: retired Other Information That Helps Us Care for You: No Feels Safe at Home: Yes Safety Concerns: Feels Safe At This Time Diet: diabetic during the past year weight has: decreased > 10 lbs Dental Care, Regularly: No Physical Activity Frequency: Daily Seatbelt Use: always Assistive Devices: None Review of Systems Review of Systems: All systems reviewed & are unremarkable except as noted in HPI & below Physical Exam Constitutional: no acute distress Respiratory: no respiratory distress and no labored breathing Musculoskeletal: Head/Neck/Chest: normocephalic Skin: No visible rashes or lesions to exposed skin areas Neurologic: moves all extremities and awake Psychiatric: A+Ox3, euthymic affect Results & Data Vital Signs (Past 12 Hours) Vital Signs Temp Pulse Resp BP Pulse Ox O2 Del Method 08/04/24 07:25 36.9 C 60 17 148/72 H 98 Room Air PG Care Time/CCT Total # of Minutes Spent Total Time Spent with Patient: Total time spent is greater than 50% in coordination of care (as documented) at patient's floor/unit and/or counseling patient: Coding Level of Care Code 12008 INT INP/OBS CARE 1/40MIN Diagnoses Mass of right kidney N28.89
[2024-08-04] MEDS: LAVAGE SOLUTION 4000ML PO SCH (17:17)
[2024-08-04] MEDS: PANTOprazole 40 MG TAB PO SCH (19:31)
[2024-08-04] MEDS ORDERED: Nursing to Pharmacy Communication SCH (23:00)
[2024-08-05] MEDS: INSULIN ASPART PER UNIT CHARGE SC SCH (05:46)
--- NOTE | 2024-08-05 06:51 | Anesthesiology Consultation ---
Date of Service August 05, 2024 Assessment & Plan Chart Review Chart Review: Acceptable Risk for Surgery Consults Requested none ASA ASA3 Proposed Anesthesia Anesthesia Type: MAC Risk / Benefits Reviewed With: PT / POA / Parent / Guardian, Accepts Plan and Informed Consent Obtained History Surgery Operation Date: 08/05/24 16:30 Proposed Procedures p Colonoscopy EGD Dr. Cassidy Benjamin MD Height/Weight Height: 5 ft 10 in Weight: 65.771 kg Allergies Allergy/AdvReac Type Severity Reaction Status Date / Time No Known Allergies Allergy Verified 08/05/24 12:21 Medications Home Medications Medication Instructions Recorded Confirmed Last Taken pantoprazole 40 mg tablet,delayed 40 mg PO BID #60 tabs 08/05/24 Unknown release Active Medications Generic Name Dose Route Start Last Admin Trade Name Freq PRN Reason Stop Dose Admin Sodium Chloride 500 mls @ 70 mls/hr 08/05/24 07:45 08/05/24 08:39 Nss IV 08/05/24 14:53 70 mls/hr .[id number] JENNIFER Administration Insulin Aspart 0 units 08/05/24 06:00 08/05/24 12:02 Insulin Aspart Per Unit Charge SC 09/04/24 05:59 Not Given Q6 JENNIFER Ondansetron HCl 4 mg 08/03/24 00:03 08/04/24 07:00 Ondansetron Inj 2 Mg/Ml 2 Ml Vial IV 09/02/24 00:02 4 mg Q6H PRN Administration Nausea Pantoprazole Sodium 40 mg 08/04/24 21:00 08/05/24 08:38 Pantoprazole 40 Mg Tab PO 09/03/24 20:59 40 mg BID JENNIFER Administration NPO Date Last Intake of Fluids: 08/05/24 Time Last Intake of Fluids: 07:00 Date Last Intake of Solids: 08/03/24 Time Last Intake of Solids: 12:00 Past Medical History Medical History (Updated 08/05/24 @ 06:49 by Nafisa Dhillon DO) Laceration of finger History of diabetic ketoacidosis History of necrotising fasciitis Type 2 diabetes mellitus Subacute pancreatitis Impaired fasting glucose Hypercholesterolemia Epigastric pain Cerumen impaction Abscess of left leg Abdominal discomfort, epigastric Hyperglycemia Pancreatitis 05/17/18 treated at [facility] (gastroesophageal reflux disease) Exercise / Class Metabolic Activity II 4-5 Yardwork/Stairs/Walk up hill Past Family History Family History Sister Breast cancer Grandfather Myocardial infarction Father Alzheimer disease Denies family history of Ovarian cancer Prostate cancer Colorectal cancer Past Surgical History Surgical History History of tonsillectomy Past Anesthesia History No Hx of Anesthesia Complications and No Family Hx of Anesthesia Complications History of PONV No Hx of PONV and No Hx of Motion Sickness Social History Smoking Status: Heavy tobacco smoker tobacco type: cigarettes Smoking cigarettes per day: 20 Do You Dip or Chew Tobacco: No Hx Alcohol Use: Yes Alcohol type: wine alcohol intake frequency: a few times a week Hx Substance Use: Yes substance use type: marijuana Physical Exam Vital Signs Last Vital Signs Temp 36.7 C 08/05/24 08:27 Pulse 56 L 08/05/24 09:24 Resp 16 08/05/24 08:27 BP 149/66 H 08/05/24 08:27 Pulse Ox 98 08/05/24 08:27 O2 Del Method Room Air 08/04/24 20:50 ENMT Mouth: + edentulous; no TMJ abnormality Thyromental Distance: > or= 3.5 Finger Breadths Mallampati Class: II Neck normal visual inspection and trachea midline; neck extension not limited Respiratory normal respiratory effort Auscultation: lungs clear to auscultation bilaterally Cardiovascular Rate/Rhythm: regular rate and regular rhythm Heart Sounds: no murmur Musculoskeletal Spine: normal cervical ROM Extremities: full ROM of extremities Neurologic moves all extremities Psychiatric Orientation: alert and oriented x 3 Testing Laboratory Results 08/05/24 07:08 08/05/24 07:08 Hemoglobin A1c 6.1 % (4.5-5.6) H 08/03/24 07:06 Urine Color Yellow 08/02/24 19:50 Urine Appearance Clear (Clear) 08/02/24 19:50 Urine pH 5.5 (4.5-7.5) 08/02/24 19:50 Ur Specific [place] > 1.045 (1.000-1.030) H 08/02/24 19:50 Urine Protein Trace (Negative) H 08/02/24 19:50 Urine Glucose (UA) Negative (Negative) 08/02/24 19:50 Urine Ketones Negative (Negative) 08/02/24 19:50 Urine Nitrite Negative (Negative) 08/02/24 19:50 Ur Leukocyte Esterase Negative (Negative) 08/02/24 19:50 Urine WBC (Auto) 0-5 /hpf (0-5) 08/02/24 19:50 Urine RBC (Auto) 0-2 /hpf (0-2) 08/02/24 19:50 U Hyaline Cast (Auto) 0-2 /lpf (0-2) 08/02/24 19:50 U Epithel Cells (Auto) 0-2 /hpf (0-2) 08/02/24 19:50 Urine Bacteria (Auto) None Seen (None Seen) 08/02/24 19:50 08/02/24 20:15 Aerobic Blood Culture - Preliminary Blood No growth in Aerobic bottle after 48 hours. Anaerobic Blood Culture - Preliminary No growth in Anaerobic bottle after 48 hours. 08/02/24 20:21 Aerobic Blood Culture - Preliminary Blood No growth in Aerobic bottle after 48 hours. Anaerobic Blood Culture - Preliminary No growth in Anaerobic bottle after 48 hours. 08/05/24 08/05/24 11:58 05:43 POC Glucose 97 97 Electrocardiogram Date: 08/02/24 Findings: + NSR @ (83 bpm with PACs) and + NSST changes Chest X-Ray Date: 08/02/24 Findings: + NAD
--- NOTE | 2024-08-05 07:34 | Hospitalist Progress Note ---
Date of Service August 05, 2024 Assessment & Plan (1) GERD (gastroesophageal reflux disease): Plan: Presented with nausea, vomiting, dehydration x 3 days after receiving influenza vaccine. Review of PCP notes patient has been dealing with GERD for >1 year with associated post-prandial discomfort with dysphagia, had been on famotidine once daily with reports of constipation with increase to BID. Had been noted to have "low blood counts" when donating blood earlier this year as well.Has tried lifestyle modifications with minimal benefit History significant for new onset dyspepsia >60 y/o, 15-20 pound weight loss in last year, moderate alcohol use, and 1 ppd smoking history x 50 years Has followed with GI outpatient for GERD symptoms, and per note on 07/16/24, patient has declined starting daily therapy EGD from 2018 significant for esophagitis GI consulted, plans for c-scope/EGD with Dr Benjamin 08/05 Bowel prepped 08/04 NPO for endoscopy today IVF NS@70cc/hr while NPO as appears likely not going for scope until this afternoon. PPI increased to BID per GI (I send rx to pharmacy) Further recs following EGD/c-scope Hopeful dc in AM 08/06 pending advancement of diet/endoscopy results. Will need urology f/u as well as CT chest for screening given renal mass and smoking hx (also brother w/ hx lung ca). Depending inpatient course could consider while inpatient but will defer for now (2) Mass of right kidney: Plan: Right renal midpole mass noted on CT A/P. UA did NOT appear infected on admission Renal US noted complex R kidney midpole mass measuring 2.6cm, CT recommended Renal CT w/ reports complicated right renal cystic mass measuring up to 2.2 cm. When compared to the abdomen CT from 08/02/2024 performed with intravenous contrast, the differential diagnosis includes a complicated cyst, abscess or cystic neoplasm. Urology consultation and" will follow-up as suggested. Urine cytology with reflex FISH pending Urology consulted while inpatient -- will need additional work-up outpatient, they are to arrange As above, will also need CT chest for screening given smoking hx/weight loss and family hx w/ brother w/ lung ca (3) Diabetes mellitus with complication: Plan: Glucose 173 on admission. A1c 6.1% Metformin on hold and using SSI while inpatient and made adjustments 08/05 and remain acceptable Monitor (4) Cigarette smoker: Plan: Tobacco use disorder - Feels he will not need a nicotine patch, has not asked Cessation recommended, will need CT chest as above but no significant SOB and remains on RA. Plan Dispo: NPO for EGD/c-scope today, IVF/PPI BID continued for now Possible dc 08/06 pending advancement of diet/endoscopy results Pending EGD/c-scope, consideration for oncology consult inpatient if dong evidence for malignancy and could entertain CT chest for further eval At dc, will need Urology f/u for renal mass Admission and Anticipated Discharge Date Admission Date: August 04, 2024 Supervising Physician Co-Signing Physician Notes The patient was not seen by me. The chart was reviewed. Case discussed with SHELLIE Nazario. Agree with assessment and plan Subjective Evaluated this morning, sitting up in bed. Tolerated prep without issue, had some nausea overnight/belching issues and given nausea medication with good relief. He is excited for diet this afternoon following scope. Planning for outpt f/u Urology as well as CT chest for screening given hx smoking as well pending EGD results. Hopeful dc in AM and pending results of scopes/adv of diet can plan to send meds this evening in anticipation for dc tomorrow if no issues. No CP/SOB, on room air. Questions/concerns addressed at this time. Physical Exam 2 Physical Exam: General 69 yo male sitting up in bed, reading, NAD HEENT: head atraumatic, normocephalic, mm slightly dry, trachea midline Resp; even/unlabored, bibasilar crackles but no wheezing/rales, on ROOM AIR CV: RRR, no significant m/r/g, no pitting edema GI: +BS, soft, slight distension (decreased), NONTENDER no rodriguez MSK/Neuro: nonfocal, answering questions appropriately, no slurred speech/confusion Psych: AOx3, cooperative with exam Results & Data Results & Data Vital Signs (Past 12 Hours) Vital Signs Temp Pulse Resp BP Pulse Ox O2 Del Method 08/04/24 22:16 144/74 H 08/04/24 20:50 36.4 C L 72 16 182/68 H 98 Room Air Laboratory Results 08/05/24 07:08 08/05/24 07:08 PSA 1.125 B12 538 PG Care Time/CCT Total # of Minutes Spent Total Time Spent with Patient: Total time spent is greater than 50% in coordination of care (as documented) at patient's floor/unit and/or counseling patient: Coding Level of Care Code 29450 SUB INP/OBS CARE 2/35MIN Diagnoses GERD (gastroesophageal reflux disease) K21.9 Mass of right kidney N28.89 Diabetes mellitus with complication E11.8 Cigarette smoker F17.210
[2024-08-05 08:10] LABS: Basophils # (auto) 0.04 K/uL (0.00-0.20); Basophils % (auto) 0.5 %; Eosinophils # (auto) 0.13 K/uL (0.00-0.50); Eosinophils % (auto) 1.7 %; Hematocrit (blood only) 35.2 % (42.0-52.0); Hemoglobin 11.9 g/dl (14.0-18.0); Immature Granulocytes # (auto) 0.03 K/uL (0.01-0.20); Immature Granulocytes % (auto) 0.4 %; Lymphocytes # (auto) 2.09 K/uL (1.20-3.40); Lymphocytes % (auto) 26.6 %; Mean Corpuscular Hemoglobin 30.1 pg (25.0-34.0); Mean Corpuscular Hgb Conc 33.8 g/dL (32.0-36.0); Mean Corpuscular Volume 89.1 fL (80.0-100.0); Mean Platelet Volume 10.8 fL (9.4-12.4); Monocytes # (auto) 0.52 K/uL (0.11-0.59); Monocytes % (auto) 6.6 %; Neutrophils # (auto) 5.06 K/uL (1.40-6.50); Neutrophils % (auto) 64.2 %; Platelet Count 186 K/uL (130-400); RDW Coefficient of Variation 12.9 % (11.5-14.5); RDW Standard Deviation 42.4 fL (36.4-46.3); Red Blood Count 3.95 M/uL (4.70-6.10); White Blood Count 7.87 K/ul (4.8-10.8)
[2024-08-05 08:25] LABS: Albumin Level 3.2 gm/dl (3.4-5.0); BUN Creatinine Ratio 18.2 (10-20); Calcium 8.6 mg/dl (8.6-10.3); Creatinine Clr Calc Pharmacy 117.9 ml/min; Phosphorus 2.9 mg/dl (2.5-4.9); Potassium 3.7 mmol/L (3.5-5.1)
[2024-08-05] MEDS: SODIUM CHLORIDE 0.9% 500 ML IV SCH (08:39)
--- NOTE | 2024-08-05 09:42 | Gastroenterology Progress Note ---
Date of Service August 05, 2024 Assessment & Plan (1) GERD (gastroesophageal reflux disease): Plan: 69 year old male with history of DM (diet controlled), dyslipidemia, anemia and others below admitted for management of nausea/vomiting and fevers following inf luenzae vaccination - GI was asked to evaluate for dyspepsia and weight loss. Maintain NPO status for EGD/Colonoscopy today. Please refer to previous notes for additional recommendation and plans. We appreciate assistance in the management of any serological abnormality and corrections to include: hemoglobin >7, INR <2, platelets >50,000, potassium levels >3.5 but <5.3, and sodium levels within 5 points of the reference range prior to endoscopic evaluation. Admission and Anticipated Discharge Date Admission Date: August 04, 2024 Supervising Physician Co-Signing Physician Notes I examined the patient and reviewed the medical record, laboratory data and imaging studies. I agree with the assessment and plan of care as suggested by the advanced practice provider. Will plan EGD and colonoscopy and further recommendations after above Subjective Tolerated prep for EGD/Colon Endorsing liquid, clear stools. No abd pain, nausea/vomiting Review of Systems Review of Systems: All other findings negative except as noted in HPI. Physical Exam Constitutional: WD/WN, vitals as above Respiratory: normal respiratory effort Cardiovascular: Rate/Rhythm: regular rate Gastrointestinal (Abdomen): normal bowel sounds, soft, nontender, no hepatosplenomegaly Skin: no rashes, warm and dry Results & Data Results & Data Vital Signs (Past 12 Hours) Vital Signs Temp Pulse Resp BP Pulse Ox 08/05/24 09:24 56 L 08/05/24 08:27 36.7 C 47 L 16 149/66 H 98 08/04/24 22:16 144/74 H Laboratory Results 08/05/24 08/05/24 08/04/24 Range/Units 07:08 05:43 20:49 WBC 7.87 (4.8-10.8) K/ul RBC 3.95 L (4.70-6.10) M/uL Hgb 11.9 L (14.0-18.0) g/dl Hct 35.2 L (42.0-52.0) % MCV 89.1 (80.0-100.0) fL MCH 30.1 (25.0-34.0) pg MCHC 33.8 (32.0-36.0) g/dL RDW Std Deviation 42.4 (36.4-46.3) fL RDW Coeff of Poli 12.9 (11.5-14.5) % Plt Count 186 (130-400) K/uL MPV 10.8 (9.4-12.4) fL Immature Gran % (Auto) 0.4 % Neut % (Auto) 64.2 % Lymph % (Auto) 26.6 % [place] % (Auto) 6.6 % Eos % (Auto) 1.7 % Baso % (Auto) 0.5 % Neut # (Auto) 5.06 (1.40-6.50) K/uL Lymph # (Auto) 2.09 (1.20-3.40) K/uL [place] # (Auto) 0.52 (0.11-0.59) K/uL Eos # (Auto) 0.13 (0.00-0.50) K/uL Baso # (Auto) 0.04 (0.00-0.20) K/uL Immature Gran # (Auto) 0.03 (0.01-0.20) K/uL Sodium 140 (136-145) mmol/L Potassium 3.7 (3.5-5.1) mmol/L Chloride 107 (98-107) mmol/L Carbon Dioxide 27 (21-32) mmol/L Anion Gap 6 (3-11) BUN 10 (6-23) mg/dl Creatinine 0.55 L (0.6-1.4) mg/dl Est Cr Clr Drug Dosing 117.9 ml/min eGFR 107.28 BUN/Creatinine Ratio 18.2 (10-20) Glucose 89 (70-99(Fasting)) mg/dl POC Glucose 97 119 H (70-99) mg/dl Calcium 8.6 (8.6-10.3) mg/dl Phosphorus 2.9 (2.5-4.9) mg/dl Magnesium 2.0 (1.7-2.4) mg/dl Iron 104 (35-175) mcg/dl TIBC 299 (250-450) mcg/dl Unsaturated IBC 195 (155-355) mcg/dl Transferrin % Sat 35 (20-50) % Ferritin 33.0 (8-388) ng/ml Albumin 3.2 L (3.4-5.0) gm/dl Prostate Specific Ag 1.125 (0-4) ng/ml Vitamin B12 538 (180-914) pg/ml 08/04/24 08/04/24 Range/Units 16:47 11:30 WBC (4.8-10.8) K/ul RBC (4.70-6.10) M/uL Hgb (14.0-18.0) g/dl Hct (42.0-52.0) % MCV (80.0-100.0) fL MCH (25.0-34.0) pg MCHC (32.0-36.0) g/dL RDW Std Deviation (36.4-46.3) fL RDW Coeff of Poli (11.5-14.5) % Plt Count (130-400) K/uL MPV (9.4-12.4) fL Immature Gran % (Auto) % Neut % (Auto) % Lymph % (Auto) % [place] % (Auto) % Eos % (Auto) % Baso % (Auto) % Neut # (Auto) (1.40-6.50) K/uL Lymph # (Auto) (1.20-3.40) K/uL [place] # (Auto) (0.11-0.59) K/uL Eos # (Auto) (0.00-0.50) K/uL Baso # (Auto) (0.00-0.20) K/uL Immature Gran # (Auto) (0.01-0.20) K/uL Sodium (136-145) mmol/L Potassium (3.5-5.1) mmol/L Chloride (98-107) mmol/L Carbon Dioxide (21-32) mmol/L Anion Gap (3-11) BUN (6-23) mg/dl Creatinine (0.6-1.4) mg/dl Est Cr Clr Drug Dosing ml/min eGFR BUN/Creatinine Ratio (10-20) Glucose (70-99(Fasting)) mg/dl POC Glucose 82 206 H (70-99) mg/dl Calcium (8.6-10.3) mg/dl Phosphorus (2.5-4.9) mg/dl Magnesium (1.7-2.4) mg/dl Iron (35-175) mcg/dl TIBC (250-450) mcg/dl Unsaturated IBC (155-355) mcg/dl Transferrin % Sat (20-50) % Ferritin (8-388) ng/ml Albumin (3.4-5.0) gm/dl Prostate Specific Ag (0-4) ng/ml Vitamin B12 (180-914) pg/ml PG Care Time/CCT Total # of Minutes Spent Total Time Spent with Patient: Total time spent is greater than 50% in coordination of care (as documented) at patient's floor/unit and/or counseling patient: Coding Level of Care Code None Diagnoses GERD (gastroesophageal reflux disease) K21.9
--- NOTE | 2024-08-05 14:23 | Anesthesiology Progress Note ---
Date of Service August 05, 2024 Anesthesia Post Procedure Vital Signs Vital Signs: Temp Pulse Resp BP Pulse Ox O2 Del Method 08/05/24 14:19 60 16 144/59 H 100 Room Air 08/05/24 12:25 36.7 C 54 L 16 154/63 H 97 08/05/24 09:24 56 L 08/05/24 08:27 36.7 C 47 L 16 149/66 H 98 08/04/24 22:16 144/74 H 08/04/24 20:50 36.4 C L 72 16 182/68 H 98 Room Air 08/04/24 16:11 36.6 C 60 18 147/70 H 99 Room Air Pain Intensity Generalized: Pain Intensity: 6 Abdomen: Pain Intensity: 2 Transfer of Care Handoff Completed per policy Notes Mental Status: alert / awake / arousable Patient Amnestic to Procedure: Yes Nausea / Vomiting: adequately controlled Pain: adequately controlled Airway Patency, RR, SpO2: stable & adequate BP & HR: stable & adequate Hydration State: stable & adequate Anesthetic Complications: no major complications apparent and Pt Satisfied with anesthetic care
--- NOTE | 2024-08-05 14:30 | GI REPORT ---
[facility] Patient: ROBERTO NIETO : 1955 Sex at : Male Age: 69 Years Procedure: Colonoscopy Date: 08/05/2024 Attending Physician: Dennis Benjamin MD Referring MD: Jeevan Hayes Indications: - Screening for colorectal malignant neoplasm Medications: - Monitored Anesthesia Care Complications: - No immediate complications. Estimated Blood Loss: - Estimated blood loss: None. Procedure: - The pediatric colonoscope was introduced through the anus and advanced to the cecum, identified by appendiceal orifice and ileocecal valve. - The colonoscopy was performed with ease. - The patient tolerated the procedure well. - The quality of the bowel preparation was fair. - Anatomical landmarks were photographed. Findings: - 5 polyp DC cold biopsied. Fair prep requiring extensive washing Impression: - Preparation of the colon was fair. - 5 polyp DC cold biopsied. Fair prep requiring extensive washing Recommendation: - Repeat colonoscopy in 3 years secondary to prep Procedure Code(s): - G0121, Colorectal cancer screening; colonoscopy on individual not meeting criteria for high risk Diagnosis Code(s): - Z12.11, Encounter for screening for malignant neoplasm of colon CPT(R) - 2022 copyright [employer]. All Rights Reserved. The CPT codes, CCI edits and ICD codes generated are intended as suggestions and were generated based on input data. These codes are preliminary and upon invoice coder review may be revised to meet current compliance and payer requirements. The provider is responsible for the final determination of appropriate codes, and modifiers. Dennis Benjamin MD This document has been electronically signed. Note Initiated:08/05/2024 Note Completed:08/05/2024 2:29 PM [email or web address]\[email or web address]\Data\Provation\Results\[id number]
--- NOTE | 2024-08-05 14:33 | GI REPORT ---
[facility] Patient: ROBERTO NIETO : 1955 Sex at : Male Age: 69 Years Procedure: Upper GI endoscopy Date: 08/05/2024 Attending Physician: Dennis Benjamin MD Referring MD: Referred Self; Jeevan Hayes Indications: - reflux and weight loss Medications: - Monitored Anesthesia Care Complications: - No immediate complications. Estimated Blood Loss: - Estimated blood loss: None. Procedure: - The egd scope was introduced through the mouth and advanced to the second part of the duodenum. - The upper GI endoscopy was accomplished with ease. Findings: - Grade D esophagitis hiatal hernia diffuse gastritis and scattered erosions biopsy done for H. pylori duodenitis in the bulb Impression: - Grade D esophagitis . Hiatal hernia diffuse gastritis and scattered erosions biopsy done for H. pylori duodenitis in the bulb Recommendation: - PPI twice daily stop avoid NSAIDs repeat EGD in 3 to 4 months after intense PPI therapy to rule out Mccurdy's Procedure Code(s): - 98993, Esophagogastroduodenoscopy, flexible, transoral; diagnostic, including collection of specimen(s) by brushing or washing, when performed (separate procedure) CPT(R) - 2023 copyright [employer]. All Rights Reserved. The CPT codes, CCI edits and ICD codes generated are intended as suggestions and were generated based on input data. These codes are preliminary and upon signal system testing maintainer review may be revised to meet current compliance and payer requirements. The provider is responsible for the final determination of appropriate codes, and modifiers. Dennis Benjamin MD This document has been electronically signed. Note Initiated:08/05/2024 Note Completed:08/05/2024 2:32 PM [email or web address]\[email or web address]\Data\Provation\Results\LIVE\[id number]
[2024-08-05 14:50] VITALS: O2SAT 98
[2024-08-05 15:25] VITALS: BP 168/78; PULSE 65; RESP 16; TEMP 97.2
[2024-08-05] MEDS: PROPOFOL IV EMULSION 10 MG/ML 20 ML VIAL IV ONE ×3 (15:27→15:28)
[2024-08-05] MEDS: LIDOCAINE 2% 2 ML VIAL/AMP(20MG/ML) INFIL ONE ×2 (15:27)
[2024-08-05] MEDS: ePHEDrine sulfate 50 MG/ML AMP ONE (15:28)
[2024-08-05] MEDS: SODIUM CHLORIDE 0.9% PF INJ 10 ML VIAL ONE (15:28)
[2024-08-05] MEDS: ONDANSETRON INJ 2 MG/ML 2 ML VIAL ONE (15:28)
--- NOTE | 2024-08-05 15:37 | Discharge Summary ---
Discharge Summary Date of Service August 05, 2024 Principal Dx & Hospital Course #1 = Principal Diagnosis (1) GERD (gastroesophageal reflux disease): Presented with nausea, vomiting, dehydration x 3 days after receiving influenza vaccine. Review of PCP notes patient has been dealing with GERD for >1 year with associated post-prandial discomfort with dysphagia, had been on famotidine once daily with reports of constipation with increase to BID. Had been noted to have "low blood counts" when donating blood earlier this year as well.Has tried lifestyle modifications with minimal benefit History significant for new onset dyspepsia >60 y/o, 15-20 pound weight loss in last year, moderate alcohol use, and 1 ppd smoking history x 50 years Has followed with GI outpatient for GERD symptoms, and per note on 07/16/24, patient has declined starting daily therapy EGD from 2018 significant for esophagitis GI consulted, plans for c-scope/EGD with Dr Benjamin 08/05. Bowel prepped 08/04 EGD noting gastritis with duodenitis, recs to continue PPI BID and repeat EGD in 3-4 months for eval underlying Barretts. Discussed w/ patient to avoid NSAIDs, can take tylenol for pain. Continued on protonix 40mg PO BID F/u pathology on polyp as well as H. Pylori testing (2) Gastritis and duodenitis: Noted on EGD as above Protonix started once daily but increased to BID per results and will need repeat EGD in 3-[address] Benjamin for eval underlying barretts. F/u pathology at discharge. Recommended to avoid NSAIDs (doesn't take) but can take Tylenol if needed. Smoking cessation encouraged. Diet adv as tolerated/easy to chew, avoid dry/spicy foods (3) Mass of right kidney: Right renal midpole mass noted on CT A/P. UA did NOT appear infected on admission Renal US noted complex R kidney midpole mass measuring 2.6cm, CT recommended Renal CT w/ reports complicated right renal cystic mass measuring up to 2.2 cm. When compared to the abdomen CT from 08/02/2024 performed with intravenous contrast, the differential diagnosis includes a complicated cyst, abscess or cystic neoplasm. Urology consultation and" will follow-up as suggested. Urine cytology with reflex FISH pending at [facility] Urology consulted while inpatient -- will need additional work-up outpatient, they are to arrange at dc Will also need CT chest for screening given smoking hx/weight loss and family hx w/ brother w/ lung ca as discussed with patient -- IS AGREEABLE (4) Diabetes mellitus with complication: Glucose 173 on admission. A1c 6.1% Metformin on hold and using SSI while inpatient and made adjustments 08/05 and remain acceptable and can resume metformin at dc (5) Cigarette smoker: Tobacco use disorder - Feels he will not need a nicotine patch, has not asked Cessation recommended, will need CT chest as above but no significant SOB and remains on RA 98%, no pleuritic pain/concerns for PE at this time Plan Dispo: dc on PPI BID, outpt f/u GI for repeat EGD in 3-4 wks as outlined and discussed with patient. Diet advanced and tolerating and MUCH less dehydrated. Urology to arrange f/u on R renal mass, f//u urine cytology Should have CT chest as discussed given smoking hx/brother w/ lung ca Notes For Next Care Provider Ensure repeat EGD in 3-4 months per GI to eval for underlying Barretts F/u EGD/c-scope pathology, urine cytology/FISH testing Ensure f/u with Urology for RIGHT renal mass Rec/discussed CT chest for screening Medication Changes From Visit Protonix 40mg PO BID Admission HPI Per Admitting Provider The patient is a 69-year-old male with a past medical history including chronic tobacco use, history of DKA, history of necrotizing fasciitis, diabetes mellitus, anemia, GERD, and history of pancreatitis. He presents to the emergency department after developing flulike symptoms shortly after receiving a flu shot 2 mornings ago. In the emergency department this evening, he reports feeling somewhat improved after having received normal saline 1 L fluid bolus, Tylenol 1 g IV, and Zofran 4 mg IV. Admission Exam Per Admitting Provider The patient is awake, alert and oriented 3, well developed and well nourished, normocephalic and atraumatic, lying in bed and in no acute distress. HEENT--PERRL, EOMI, mucous membranes and oropharynx mildly dry. Neck--supple. No JVD. No bruits. Thyroid normal, trachea midline, no adenopathy. Heart--normal S1 and S2. No murmurs, rubs or gallops. Lungs--clear bilaterally, no respiratory distress, no accessory muscle use. Abdomen--normal bowel sounds and soft. Nontender. Nondistended, no hernias or masses, no organomegaly. Extremities--no cyanosis or clubbing. No edema. There are good distal pulses b/l. Dermatologic--normal skin turgor, normal color, no abnormal lymph nodes, no rash. Neurologic--cranial nerves II through XII grossly intact. Rheumatologic--normal range of motion. Psychiatric--normal affect. Discharge Exam General 69 yo male sitting up in bed, reading, NAD HEENT: head atraumatic, normocephalic, mmm, trachea midline Resp; even/unlabored, no significant w/c/r, on room air 98% CV: RRR, no significant m/r/g, no pitting edema GI: +BS, soft, less distension, no significant tenderness/rebound/guarding no rodriguez MSK/Neuro: nonfocal, answering questions appropriately, no slurred speech/confusion Psych: AOx3, cooperative with exam Discharge Plan Discharge Items Patient Disposition: Home - Self-Care Reason For Visit: NAUSEA, VOMITING, DEHYDRATION, GERD, DYSPEPSIA Discharge Diagnosis: Gastritis, Duodenitis, REFLUX Goals: You have been hospitalized for an acute medical problem. During your stay at [facility], we have made an effort to correct the problem that brought you to the hospital while keeping you as comfortable as possible. Medications were used to bring your condition under control and your discharge instructions will include directions for any medications you should take after leaving the hospital. Please make sure you see your Primary Care Provider as part of your follow up plan. Activity: As commented below Non-emergency contact: Primary Care Provider and Urologist Call non-emergency contact if: you have any medication questions, your symptoms worsen, your pain is concerning for you and you have a fever Follow-up/Referrals: Jaime Alcala MD [Physician] - Angel Fang DO [Primary Care Provider] - Dennis Benjamin MD [Physician] - (3-4 months for repeat EGD) Diet: Heart Healthy Diet Texture: Easy to Chew Addtl Attending Provider Instructions: You have been hospitalized for nausea/vomiting/abdominal pain following influenze vaccine but appears to have been having ongoing issues with oral intake/GERD/dyspepsia concerning for underlying process and GI was consulted and you underwent endoscopy for evaluation. EGD/colonoscopy results showed INFLAMMATION called gastritis/duodenitis as well as a polyp in the colon which was biopsied and will need to ensure having follow up on these results with primary care. Per GI, you are to continue PROTONIX (pantoprazole) 40mg TWICE daily. Prescription has been sent. You should have repeat EGD (upper endoscopy) in 3-4 months for repeat evaluation. You should AVOID ALL NSAIDs (ibuprofen, aleve, naproxen) as these can worsen your symptoms and cause bleeding which was not found, but can take tylenol as needed for pain. Please monitor for increased/foul diarrhea on protonix, however as discussed this but it does not typically cause constipation as you previously reported with pepcid/famotidine in the past. You should have Urology follow up for RIGHT renal mass. urine testing is pending at discharge but will require further work-up and possible biopsy. Given your smoking history, and brother with history of lung cancer, it is recommended you also undergo a CT chest scan for screening purposes and monitoring. Your diet has been advanced since starting the protonix and have had improvement and you should continue to advance as tolerated but avoid DRY foods that can irritate this as well as SPICY foods. Smoking can also worsen symptoms, and it is strongly encouraged to avoid further smoking at discharge. PCP follow up 7-10 days from discharge. Follow up pathology Please return to the ER with any fevers/chills, worsening issues with swallowing/abdominal pain, or for any other symptoms concerning for you. It has been a pleasure being a part of the medical team providing for you while you have been in the hospital. Take care! Pending Studies at Discharge: Yes Studies:: Pathology from EGD/c-scope, H. Pylori testing Urine cytology/FISH testing Stand-Alone Forms: My [facility] [email or web address], Smoking Cessation Medications and DC Order Prescriptions: New pantoprazole 40 mg tablet,delayed release (DR/EC) 40 mg PO BID Qty: 60 0RF Discharge Orders: Discharge Order (Routine); Ordered 08/05/24 Ordered By: Francia Lang/Other Patient Handouts: Managing Type 2 Diabetes Admission Data Admit Date/Time: 08/04/24 14:53 Attending Provider: Jeevan Hayes Admit Provider: Jeevan Hayes Primary Care Provider: Fang,Angel P. Other Providers: Sim Dye; Dennis Benjamin Other Interventions: Discharge Summary Assessment (RN) Last Done: 08/05/24 14:38 Hospital Stay Data Consultations 08/02/24 21:59 ED Decision to Admit Stat 08/03/24 14:03 Consult Gastroenterology Routine 08/04/24 07:57 Consult Urology Routine Procedures Performed Operation Date: 08/05/24 16:30 Actual Procedures s EGD Biopsy Cytology(Not Applicable) - MD saskia Celestin Colonoscopy Polypectomy - Dennis Benjamin MD Diagnostic Imagining Performed Abdomen/Pelvis CT 08/02/24 17:41 EXAM: CT Abdomen and Pelvis With Intravenous Contrast INDICATION: Abdominal pain, nausea and vomiting TECHNIQUE: Axial computed tomography images of the abdomen and pelvis with intravenous contrast. Sagittal and coronal reformatted images were created and reviewed. This CT exam was performed using one or more of the following dose reduction techniques: automated exposure control, adjustment of the mA and/or kV according to patient size, and/or use of iterative reconstruction technique. CONTRAST: 95ml of Optiray 320 was administered intravenously. COMPARISON: CT abdomen pelvis 02/17/2023 and limited abdominal ultrasound 05/10/2018 FINDINGS: Limitations: None. Lung bases: No abnormality noted. Pleural space: No visualized pleural effusion or pneumothorax. Heart: No abnormality noted. Mediastinum: No abnormality noted. ABDOMEN: Liver: No abnormality noted. Gallbladder and bile ducts: No calcified stones or surrounding fluid. Pancreas: Homogeneous enhancement. No mass, inflammation or ductal dilation. Spleen: No significant abnormality noted. Adrenals: No significant abnormality noted. Kidneys and ureters: Lateral cortex midpole right kidney hypodense mass noted measuring 1.9 x 1.3 x 2.0 cm. The left kidney appears normal. There is no urinary gas, stone or perinephric fluid. Stomach and bowel: Suboptimally assessed partially collapsed stomach. No gross abnormality. Scattered moderate formed stool noted in the colon. No small bowel obstruction. No inflammatory process or thickening. PELVIS: Appendix: No findings to suggest acute appendicitis. Bladder: No filling defects to suggest mass or large stone. No inflammation. Reproductive: No abnormalities noted. ABDOMEN and PELVIS: Intraperitoneal space: No free air. No significant fluid collection. Bones/joints: No acute changes. Soft tissues: No significant abnormality noted. Vasculature: Atherosclerotic calcification of the aorta and branches. No aneurysm. Lymph nodes: No pathologically enlarged lymph nodes. IMPRESSION: 1. Incompletely assessed partially collapsed stomach. There is no visible mass, intestinal obstruction, thickening or inflammatory process. 2. Hypodense mass right renal midpole measures approximately 2 cm. No lesion was identified on the prior ultrasound which included the right kidney. Diagnostic considerations include complex cyst, abscess and neoplasm. Dedicated renal ultrasound recommended to further assess. ACT 112: Negative or not required by law. Electronically signed by Ivett Zhong 08-02-2024 7:01 PM Chest X-Ray 08/02/24 18:23 Exam(s): XR CXR 1 VIEW EXAM: XR Chest, 1 View CLINICAL HISTORY: Reason for exam: cough. TECHNIQUE: Frontal view of the chest. COMPARISON: 02/17/23 FINDINGS: Lungs: Unremarkable. No consolidation. Pleural space: Unremarkable. No pleural effusion or pneumothorax. Heart: Unremarkable. No cardiomegaly or pulmonary vascular congestion. Bones/joints: No acute fracture. No dislocation. IMPRESSION: No evidence of acute cardiopulmonary disease. Electronically signed by: Viry Baumann M.D. 08/02/24 19:54 PM Renal Ultrasound 08/02/24 20:21 Exam(s): US RENAL EXAM: US Retroperitoneal Limited, Renal CLINICAL HISTORY: Reason for exam: renal mass. TECHNIQUE: Real-time limited ultrasound of the retroperitoneum with image documentation. COMPARISON: CT abdomen and pelvis of the same date FINDINGS: Right kidney: Right kidney measures 11.2 cm. No hydronephrosis. No stone. Complex midpole lesion measuring 2.6 cm. Left kidney: Left kidney measures 11.2 cm. No hydronephrosis, mass, cyst, or stone. Bladder: Urinary bladder appears normal. Left jet visualized. Right jet not visualized during the course of imaging. IMPRESSION: Complex right kidney midpole mass measuring 2.6 cm. Further characterization with renal mass protocol MRI or CT recommended. Electronically signed by: Viry Baumann M.D. 08/02/24 21:[address] 08/03/24 16:54 EXAMINATION: Abdomen CT without CLINICAL HISTORY: Complex right renal pole mass on ultrasound, CT recommended PRIORS: CT Abd 08/02/2024 with contrast TECHNIQUE: Contiguous axial images were obtained through the abdomen and pelvis without the use of intravenous contrast. Sagittal and coronal reformations are supplied. FINDINGS: Lung bases are unremarkable. A hyperdense renal mass is present in the right kidney, interpolar region, image 27, series 2. Allowing for noncontrast enhanced technique, this measures approximately 2.2 x 2.0 cm. The periphery is slightly hyperdense with respect to renal parenchyma and mildly low attenuation in the center. It is approximately round in shape. No perinephric stranding, hydronephrosis or obstructing calculus. The contralateral left kidney is unremarkable. No retroperitoneal adenopathy. Moderate to advanced atherosclerotic disease of the abdomen. The noncontrast enhanced liver, gallbladder, pancreas, spleen, stomach, adrenals are unremarkable. Large amount of formed stool in the visualized colon. IMPRESSION: Complicated right renal cystic mass measuring up to 2.2 cm. When compared to the abdomen CT from 08/02/2024 performed with intravenous contrast, the differential diagnosis includes a complicated cyst, abscess or cystic neoplasm. Urology consultation and" will follow-up as suggested. ACT 112: Positive. There are findings on this examination that require communication between the performing entity and the patient following Patient Test Result Information Act ([place] ACT 112) guidelines. Electronically signed by Vero Flaherty 08-03-2024 5:42 PM Pending Results Patient Have Any Pending Studies at Discharge: Yes Discharge Instructions Given to Patient (Per Discharging Provider) You have been hospitalized for nausea/vomiting/abdominal pain following influenze vaccine but appears to have been having ongoing issues with oral intake/GERD/dyspepsia concerning for underlying process and GI was consulted and you underwent endoscopy for evaluation. EGD/colonoscopy results showed INFLAMMATION called gastritis/duodenitis as well as a polyp in the colon which was biopsied and will need to ensure having follow up on these results with primary care. Per GI, you are to continue PROTONIX (pantoprazole) 40mg TWICE daily. Prescription has been sent. You should have repeat EGD (upper endoscopy) in 3-4 months for repeat evaluation. You should AVOID ALL NSAIDs (ibuprofen, aleve, naproxen) as these can worsen your symptoms and cause bleeding which was not found, but can take tylenol as needed for pain. Please monitor for increased/foul diarrhea on protonix, however as discussed this but it does not typically cause constipation as you previously reported with pepcid/famotidine in the past. You should have Urology follow up for RIGHT renal mass. urine testing is pending at discharge but will require further work-up and possible biopsy. Given your smoking history, and brother with history of lung cancer, it is recommended you also undergo a CT chest scan for screening purposes and monitoring. Your diet has been advanced since starting the protonix and have had improvement and you should continue to advance as tolerated but avoid DRY foods that can irritate this as well as SPICY foods. Smoking can also worsen symptoms, and it is strongly encouraged to avoid further smoking at discharge. PCP follow up 7-10 days from discharge. Follow up pathology Please return to the ER with any fevers/chills, worsening issues with swallowing/abdominal pain, or for any other symptoms concerning for you. It has been a pleasure being a part of the medical team providing for you while you have been in the hospital. Take care! Supervising Physician Co-Signing Physician Notes The patient was not seen by me. The chart was reviewed. Case discussed with SHELLIE Nazario. Agree with assessment and plan Total Time Total Time Spent Total Time Spent (In Minutes): 50 Coding Level of Care Code 95784 INP/OBS DISCH >30 MIN Diagnoses GERD (gastroesophageal reflux disease) K21.9 Gastritis and duodenitis K29.90 Mass of right kidney N28.89 Diabetes mellitus with complication E11.8 Cigarette smoker F17.210
--- NOTE | 2024-08-12 10:44 | Coding Query ---
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 Please assist us with the question(s) below: Coding Question(s): The patient underwent an EGD on 08/05 procedure states " The egd scope was introduced through the mouth and advanced to the second part of the duodenum" With the findings " diffuse gastritis and scattered erosions biopsy done for H. pylori duodenitis in the bulb" Please clarify the site of the biopsies taken Physician's Response(s): Antrum and body Thank you Marley Chairez Principal Diagnosis: "that condition established after study, to be chiefly responsible for occasioning the admission of the patient to the hospital for care." Co-Existing Principal Diagnosis: "when two or more diagnoses equally meet the criteria for principal diagnosis as determined by the circumstances of admission, diagnostic work up, and/or therapy provided, and the Alphabetic Index, Tabular List, or another coding guideline does not provide sequencing direction, any one of the diagnoses may be sequenced first." "When the physician has documented what appears to be a current diagnosis in the body of the record, but has not included the diagnosis in the final diagnostic statement, the physician should be asked whether the diagnosis should be added." (Source Coding Clinic 2 QTR90. p3-4) [facility]
== END 2024-08-05 18:04 | disposition home or self-care (01) | DRG 392 ==
LOC: 3N 17:13 → ED 17:13 → SUATTDRO 22:25 → 3N 23:49